=== PATIENT | female | born 1945 | race Caucasian/White ===

== ENCOUNTER 2022-12-12 11:16 | Inpatient (IN) | payer MEDICARE, BC, SELFPAY ==
[2022-12-12] VITALS (39 sets, daily range): BP systolic 113–155; BP diastolic 64–111; PULSE 85–146; RESP 20–36; TEMP 35.7–36.8; O2SAT 94–100
--- NOTE | 2022-12-12 11:22 | CRLHL7_ITS ---
For Patients: As a result of the Century Cures Act, medical imaging exams and procedure reports are released immediately into your electronic medical record. You may view this report before your referring provider. If you have questions, please contact your health care provider. INDICATION: Fall. COMPARISON: CT head 11/01/2012. TECHNIQUE: CT of the head without IV contrast. Coronal and sagittal reconstructions. FINDINGS: Exam limited by motion artifact. There is questionable loss of diez-white differentiation in the left frontal lobe (for example series 3, image 31). No mass effect or midline shift. No intracranial hemorrhage or abnormal extra-axial fluid collections. Mild generalized cerebral and cerebellar volume loss. Mild chronic small vessel ischemic disease. Ventricular caliber is within normal limits. Again seen is an aneurysm arising from the left middle cerebral artery measuring approximately 7 mm (series 3 image 21 and series 7, image 41). Orbits and extraocular muscles are symmetric. The paranasal sinuses and mastoid air cells are clear. No acute fracture identified. Soft tissue swelling overlying the right anterior frontal bone and right periorbital region. IMPRESSION: 1. There is questionable loss of diez-white differentiation in the left frontal lobe, however evaluation is limited by motion artifact. Consider further evaluation with MRI if there is clinical concern for acute infarct. No evidence of intracranial hemorrhage. 2. 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 This could be further evaluated with CTA or MRA. 3. Soft tissue swelling overlying the right anterior frontal bone and right periorbital region. Please note that all CT scans at this facility use dose modulation, iterative reconstruction, and/or weight-based dosing when appropriate to reduce radiation dose to as low as reasonably achievable. Dictated by Shalonda Ring MD @ 12/12/2022 12:23:08 PM (Electronically Signed)
--- NOTE | 2022-12-12 11:23 | CRLHL7_ITS ---
For Patients: As a result of the Century Cures Act, medical imaging exams and procedure reports are released immediately into your electronic medical record. You may view this report before your referring provider. If you have questions, please contact your health care provider. INDICATION: Fall. COMPARISON: None. TECHNIQUE: CT of the cervical spine without IV contrast. Coronal and sagittal reconstructions. FINDINGS: Exam limited by motion artifact. No acute fracture or traumatic malalignment of the cervical spine. Vertebral body heights are well maintained. Minimal anterolisthesis of C4 on C5. Spondylotic changes including endplate spurring, facet arthropathy, and moderate disc space narrowing at C6-C7. Multilevel varying degrees of neural foraminal narrowing. No significant spinal canal stenosis. No prevertebral soft tissue swelling. Visualized intracranial contents are unremarkable. The mastoid air cells are clear. The thyroid gland is normal in appearance. Pleural effusion in the right lung apex. There is subcutaneous edema in the right lateral face and neck. IMPRESSION: 1. No acute fracture or traumatic malalignment identified within limitations of motion artifact. 2. Spondylotic changes as described above. 3. Pleural effusion in the right lung apex. 4. Subcutaneous edema in the right lateral face and neck. Please note that all CT scans at this facility use dose modulation, iterative reconstruction, and/or weight-based dosing when appropriate to reduce radiation dose to as low as reasonably achievable. Dictated by Shalonda Ring MD @ 12/12/2022 12:32:11 PM (Electronically Signed)
--- NOTE | 2022-12-12 11:23 | CRLHL7_ITS ---
For Patients: As a result of the Century Cures Act, medical imaging exams and procedure reports are released immediately into your electronic medical record. You may view this report before your referring provider. If you have questions, please contact your health care provider. INDICATION: Fall. Unresponsive. COMPARISON: None TECHNIQUE: Single-view study FINDINGS: TUBES AND LINES: None. HEART AND MEDIASTINUM: Enlarged heart.. LUNGS AND PLEURAL SPACES: Diffuse multifocal airspace abnormality bilaterally, right greater than left. There is also consolidation at both bases and a right effusion.No pneumothorax. OSSEOUS STRUCTURES: Age-appropriate appearance. No acute focal finding. IMPRESSION: Diffuse multifocal airspace opacities bilaterally, right greater than left. This could be due to edema. There are also areas of consolidation at the bases and a right effusion. The consolidation could be due to atelectasis, aspiration or pneumonia. No pneumothorax Dictated by Brodie Larkin MD @ 12/12/2022 12:27:39 PM (Electronically Signed)
--- NOTE | 2022-12-12 11:27 | ED.GENADULT ---
HPI - General Adult General Chief complaint: Altered Mental Status Stated complaint: Unresponsive Time Seen by Provider: 12/12/22 11:21 History of Present Illness HPI narrative: This 77-year-old female comes in by ambulance. Ambulance was called by a nearby resident. The patient was down in her home for an unknown amount of time. She is not responding to stimulation but is maintaining vital signs. She has some erythema and mild swelling on the right side of her head and right upper eyelid. There is no other sign of injury. There is report that she has had fluid drain from her lungs in the past. There is also report that she has history of alcohol abuse. Related Data Home Medications Medication Instructions Recorded Confirmed furosemide 20 mg tablet 20 mg PO DAILY 12/12/22 12/12/22 losartan 100 mg tablet 100 mg PO DAILY 12/12/22 12/12/22 Review of Systems Status of ROS: Reports: unobtainable due to mental status [facility] Medical History (Updated 12/12/22 @ 15:02 by Smooth Minaya MD) Adenomatous colon polyp ?D12.6 - Benign neoplasm of colon, unspecified (ICD-10) Bilateral pleural effusion ?J90 - Pleural effusion, not elsewhere classified (ICD-10) Brain aneurysm ?I67.1 - Cerebral aneurysm, nonruptured (ICD-10) Heart failure ?I50.9 - Heart failure, unspecified (ICD-10) History of basal cell carcinoma ?Z85.828 - Personal history of other malignant neoplasm of skin (ICD-10) Hypertension ?I10 - Essential (primary) hypertension (ICD-10) Surgical History (Updated 12/12/22 @ 14:09 by Dylon Granados MD) History of bilateral cataract extraction ?Z98.41 - Cataract extraction status, right eye (ICD-10) ?Z98.42 - Cataract extraction status, left eye (ICD-10) History of breast biopsy ?Z98.890 - Other specified postprocedural states (ICD-10) History of section ?Z98.891 - History of uterine scar from previous surgery (ICD-10) History of partial colectomy ?Z90.49 - Acquired absence of other specified parts of digestive tract (ICD-10) Family History (Updated 12/12/22 @ 14:52 by Dylon Granados MD) Father High blood pressure Son Stroke Social History (Updated 12/12/22 @ 14:53 by Dylon Granados MD) Narrative: She lives alone in her own home. She was still working. 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 Remote history of smoking having quit about 40 years ago. She drinks alcohol regularly. Son is not aware of a problem with alcohol abuse. 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 Code status is DNR. Smoking Status: Unknown if ever smoked How often do you have a drink containing alcohol: 4 or more times a week AUDIT-C Alcohol total score: 4 Exam Narrative: Exam Narrative: Constitutional: Well-developed, well-nourished. HEENT: Mild swelling and erythema on the right upper eyelid and the right side of her head. Neck: A C-collar was placed upon arrival. Heart: Irregular. No murmurs. Tachycardia. Intact distal pulses. Lungs: Clear to auscultation. No wheezes, rhonchi, or rales. Abdomen: Normal bowel sounds. Genitalia: Deferred. Extremities: No injury. Skin: Intact. No rash. Warm. No erythema or pallor. Neurologic: Unresponsive to voice and tactile stimuli. Nursing notes and vitals signs are reviewed. Const: Vital Signs, click to edit/add: Vital Signs - 24 hr 12/12/22 11:29 12/12/22 11:59 12/12/22 12:00 Temperature 97 F L Pulse Rate 122 H 100 Pulse Rate [Pulse Oximeter] 134 H Respiratory Rate 24 Blood Pressure 153/111 H Blood Pressure [Le ft Upper Arm] 134/107 H Pulse Oximetry 100 100 99 Oxygen Delivery Me thod Non Rebreather Mas k 12/12/22 12:02 12/12/22 12:05 12/12/22 12:10 Temperature Pulse Rate 98 109 H 101 H Pulse Rate [Pulse Oximeter] Respiratory Rate Blood Pressure 120/76 Blood Pressure [Le ft Upper Arm] Pulse Oximetry 99 99 100 Oxygen Delivery Me thod 12/12/22 12:15 12/12/22 12:16 12/12/22 12:20 Temperature Pulse Rate 104 H 110 H 108 H Pulse Rate [Pulse Oximeter] Respiratory Rate Blood Pressure 132/97 H Blood Pressure [Le ft Upper Arm] Pulse Oximetry 97 98 96 Oxygen Delivery Me thod 12/12/22 12:25 12/12/22 12:30 12/12/22 12:31 Temperature Pulse Rate 118 H 114 H 108 H Pulse Rate [Pulse Oximeter] Respiratory Rate Blood Pressure 147/106 H Blood Pressure [Le ft Upper Arm] Pulse Oximetry 95 96 96 Oxygen Delivery Me thod 12/12/22 12:35 12/12/22 12:40 12/12/22 12:45 Temperature Pulse Rate 125 H 119 H 116 H Pulse Rate [Pulse Oximeter] Respiratory Rate Blood Pressure Blood Pressure [Le ft Upper Arm] Pulse Oximetry 96 96 96 Oxygen Delivery Me thod 12/12/22 12:46 12/12/22 12:50 Temperature Pulse Rate 109 H 102 H Pulse Rate [Pulse Oximeter] Respiratory Rate Blood Pressure 155/106 H Blood Pressure [Le ft Upper Arm] Pulse Oximetry 97 96 Oxygen Delivery Me thod Course Vital Signs Vital signs: Initial Vital Signs Temperature 97 F L 12/12/22 11:29 Temperature Source Temporal Artery Scan 12/12/22 11:29 Pulse Rate 134 H 12/12/22 11:29 Pulse Rhythm Irregular 12/12/22 11:29 Respiratory Rate 24 12/12/22 11:29 Blood Pressure 134/107 H 12/12/22 11:29 Blood Pressure Mean 116 12/12/22 11:29 Blood Pressure Position Supine 12/12/22 11:29 Pulse Oximetry 100 12/12/22 11:29 Oxygen Delivery Method Non Rebreather Mask 12/12/22 11:29 Vital Signs Temperature 97 F L 12/12/22 11:29 Pulse Rate 134 H 12/12/22 11:29 Respiratory Rate 24 12/12/22 11:29 Blood Pressure 134/107 H 12/12/22 11:29 Pulse Oximetry 100 12/12/22 11:29 Oxygen Delivery Method Non Rebreather Mask 12/12/22 11:29 Temperature 97 F L 12/12/22 11:29 Pulse Rate 102 H 12/12/22 12:50 Respiratory Rate 24 12/12/22 11:29 Blood Pressure 155/106 H 12/12/22 12:46 Pulse Oximetry 96 12/12/22 12:50 Oxygen Delivery Method Non Rebreather Mask 12/12/22 11:29 Medical Decision Making MDM Narrative Medical decision making narrative: This patient came in unresponsive. After placing orders I reexamined her and noted that she was moaning but still no other responses. EKG returns with atrial fibrillation and rapid ventricular response with a heart rate around 140 beats per minute. An IV was established where she did receive 1.75 L of normal saline which is 30 milliliters/kilogram. Her lactate returns elevated at around 4. Additionally her white count is elevated at around 18. CT imaging of the head and C-spine returned with no pathology of the C-spine that is acute. She does have a 7 mm aneurysm of the left middle cerebral artery. An MRI was completed which shows a large cerebrovascular accident in the left hemisphere. I spoke with Dr. Granados, hospitalist on-call, regarding these matters. He did speak with family members and the patient will be admitted for comfort cares. The patient did received 20 mg of diltiazem which brought her heart rate down to around 100 beats per minute and she continued in and irregular rhythm. Lab Data Labs: Lab Results 12/12/22 12/12/22 12/12/22 Range/Units 11:25 11:26 12:07 WBC 18.45 H (4.50-11.00) K/uL RBC 4.51 (4.00-5.20) m/uL Hgb 14.8 (12.0-16.0) gm/dL Hct 44.6 (33.0-51.0) % MCV 99 (80-100) fL MCH 33 (26-34) pg MCHC 33 (32-36) gm/dL RDW Coeff of Bree 14.4 (11.5-15.5) % Plt Count 335 (140-440) K/uL Neut % (Auto) 87.1 H (42.0-72.0) % Lymph % (Auto) 4.8 L (20-44) % [place] % (Auto) 7.8 (0.0-11.0) % Eos % (Auto) 0.0 (0.0-7.0) % Baso % (Auto) 0.1 (0.0-3.0) % Neut # (Auto) 16.10 H (1.7-7.0) K/uL Lymph # (Auto) 0.90 (0.90-2.90) K/uL [place] # (Auto) 1.40 H (0.00-0.90) K/UL Eos # (Auto) 0.00 (0.00-0.50) K/uL Baso # (Auto) 0.00 (0.00-0.30) K/uL Sodium 139 (135-149) mmol/L Potassium 3.5 L (3.6-5.1) mmol/L Chloride 106 (96-114) mmol/L Carbon Dioxide 20 (20-32) mmol/L BUN 19 (7-30) mg/dL Creatinine 0.7 (0.5-1.5) mg/dL Estimated GFR 90 ml/min Glucose 184 H (60-115) mg/dL Lactate 4.1 H* (0.5-1.9) mmol/L Calcium 8.9 (8.4-10.6) mg/dL Total Bilirubin 1.5 (0.1-1.5) mg/dL Direct Bilirubin 0.2 (0.0-0.5) mg/dL AST 40 H (12-35) U/L ALT 26 (4-35) U/L Alkaline Phosphatase 84 (40-150) U/L Total Creatine Kinase 85 (41-117) U/L Total Protein 7.2 (6.0-8.3) g/dL Albumin 4.4 (3.3-5.0) g/dL Urine Color Dark yellow (Yellow) Urine Appearance Slightly Cloudy A (Clear) Urine pH 5.5 (5.0-8.5) Ur Specific [place] >= 1.030 (1.000-1.030) Urine Protein 3+ A (Negative) Urine Glucose (UA) Negative (Negative) Urine Ketones Trace A (Negative) Urine Blood Trace-lysed A (Negative) Urine Nitrite Negative (Negative) Urine Bilirubin 1+ A (Negative) Urine Urobilinogen 1.0 (0.2-1.0) Ur Leukocyte Esterase Negative (Negative) Urine RBC 0-2 (0-2) Urine WBC 0-2 (0-5) Ur Squamous Epith Cells Few (None-Few) Urine Bacteria None (None) Urine Opiates Screen Negative (Negative) Ur Oxycodone Screen Negative (Negative) Urine Methadone Screen Negative (Negative) Ur Propoxyphene Screen Negative (Negative) Ur Barbiturates Screen Negative (Negative) U Tricyclic Antidepress Negative (Negative) Ur Phencyclidine Scrn Negative (Negative) Ur Amphetamines Screen Negative (Negative) U Methamphetamines Scrn Negative (Negative) U Benzodiazepines Scrn Negative (Negative) Urine Cocaine Screen Negative (Negative) U Marijuana (THC) Screen Negative (Negative) Ur Drug Screen Comment See Note Ethyl Alcohol < 0.01 L (0.01-0.03) % SARS-CoV-2 (PCR) (Negative) POC Troponin I 0.03 (0.01-0.04) ng/ml 12/12/22 Range/Units 13:42 WBC (4.50-11.00) K/uL RBC (4.00-5.20) m/uL Hgb (12.0-16.0) gm/dL Hct (33.0-51.0) % MCV (80-100) fL MCH (26-34) pg MCHC (32-36) gm/dL RDW Coeff of Bree (11.5-15.5) % Plt Count (140-440) K/uL Neut % (Auto) (42.0-72.0) % Lymph % (Auto) (20-44) % [place] % (Auto) (0.0-11.0) % Eos % (Auto) (0.0-7.0) % Baso % (Auto) (0.0-3.0) % Neut # (Auto) (1.7-7.0) K/uL Lymph # (Auto) (0.90-2.90) K/uL [place] # (Auto) (0.00-0.90) K/UL Eos # (Auto) (0.00-0.50) K/uL Baso # (Auto) (0.00-0.30) K/uL Sodium (135-149) mmol/L Potassium (3.6-5.1) mmol/L Chloride (96-114) mmol/L Carbon Dioxide (20-32) mmol/L BUN (7-30) mg/dL Creatinine (0.5-1.5) mg/dL Estimated GFR ml/min Glucose (60-115) mg/dL Lactate (0.5-1.9) mmol/L Calcium (8.4-10.6) mg/dL Total Bilirubin (0.1-1.5) mg/dL Direct Bilirubin (0.0-0.5) mg/dL AST (12-35) U/L ALT (4-35) U/L Alkaline Phosphatase (40-150) U/L Total Creatine Kinase (41-117) U/L Total Protein (6.0-8.3) g/dL Albumin (3.3-5.0) g/dL Urine Color (Yellow) Urine Appearance (Clear) Urine pH (5.0-8.5) Ur Specific [place] (1.000-1.030) Urine Protein (Negative) Urine Glucose (UA) (Negative) Urine Ketones (Negative) Urine Blood (Negative) Urine Nitrite (Negative) Urine Bilirubin (Negative) Urine Urobilinogen (0.2-1.0) Ur Leukocyte Esterase (Negative) Urine RBC (0-2) Urine WBC (0-5) Ur Squamous Epith Cells (None-Few) Urine Bacteria (None) Urine Opiates Screen (Negative) Ur Oxycodone Screen (Negative) Urine Methadone Screen (Negative) Ur Propoxyphene Screen (Negative) Ur Barbiturates Screen (Negative) U Tricyclic Antidepress (Negative) Ur Phencyclidine Scrn (Negative) Ur Amphetamines Screen (Negative) U Methamphetamines Scrn (Negative) U Benzodiazepines Scrn (Negative) Urine Cocaine Screen (Negative) U Marijuana (THC) Screen (Negative) Ur Drug Screen Comment Ethyl Alcohol (0.01-0.03) % SARS-CoV-2 (PCR) Negative SARS-CoV-2 (Negative) POC Troponin I (0.01-0.04) ng/ml Imaging Data CT scan - head: Radiologist's impression: 1. There is questionable loss of diez-white differentiation in the left frontal lobe, however evaluation is limited by motion artifact. Consider further evaluation with MRI if there is clinical concern for acute infarct. No evidence of intracranial hemorrhage. 2. 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 This could be further evaluated with CTA or MRA. 3. Soft tissue swelling overlying the right anterior frontal bone and right periorbital region. CT C Spine: Radiologist's impression: 1. No acute fracture or traumatic malalignment identified within limitations of motion artifact. 2. Spondylotic changes as described above. 3. Pleural effusion in the right lung apex. 4. Subcutaneous edema in the right lateral face and neck. ECG Data Attestation: I personally reviewed and interpreted this ECG as follows: Interpretation: Atrial fibrillation with rapid ventricular response. Rate is 141 beats per minute. There are no specific ST or T-wave abnormalities. Critical Care Time Critical Care Time Critical Care Time: Yes Attestation: The patient required my highest level preparedness to intervene emergently and I personally spent this critical care time directly and personally managing the patient. This critical care time included: Obtaining a history; Examining the patient; Pulse oximetry; Ordering and reviewing of studies; Arranging urgent treatment with development of a management plan; Evaluation of patients response to treatment; Frequent reassessment discussions with other providers. This critical care time was performed to assess and manage the high probability of imminent life-threatening deterioration that could result in multiorgan failure. It was exclusive of separate billable procedures and treating other patients and teaching time. Total Critical Care Time in Minutes: 45 Discharge Plan Discharge Clinical Impression: Altered mental status, Cerebrovascular accident (CVA), Atrial fibrillation with RVR Patient Disposition: Admitted As Inpatient Condition: Unchanged
--- NOTE | 2022-12-12 11:42 | ED.NURSE ---
Patient back from radiology. Dr. Minaya with patient, plan for fluids and diltiazem.
[2022-12-12 11:45] LABS: Lactate* 4.1 mmol/L (0.5-1.9)
[2022-12-12 11:46] LABS: Basophils Percent Auto 0.1 % (0.0-3.0); Hematocrit 44.6 % (33.0-51.0); Hemoglobin* 14.8 gm/dL (12.0-16.0); Immature Granulocytes Pct Auto 0.2 %; Lymphocytes Percent Auto 4.8 % (20-44); Mean Corpuscular HGB Conc 33 gm/dL (32-36); Mean Corpuscular Hemoglobin 33 pg (26-34); Mean Corpuscular Volume 99 fL (80-100); Monocytes Percent Auto 7.8 % (0.0-11.0); Neutrophils Percent Auto 87.1 % (42.0-72.0); Platelet Count* 335 K/uL (140-440); RDW Coefficient of Variation % 14.4 % (11.5-15.5); Red Blood Count 4.51 m/uL (4.00-5.20); Slide Review Reflex No; White Blood Count* 18.45 K/uL (4.50-11.00)
[2022-12-12] MEDS: 0.9 % SODIUM CHLORIDE 1000 ml 1,000 ML 750 ML IV (12:00)
[2022-12-12] MEDS: dilTIAZem 5 MG/ML inj 20 MG IVP (12:00)
[2022-12-12 12:08] LABS: Albumin* 4.4 g/dL (3.3-5.0)
[2022-12-12 12:09] LABS: Chloride* 106 mmol/L (96-114); Creatine Kinase* 85 U/L (41-117); Potassium* 3.5 mmol/L (3.6-5.1); Sodium* 139 mmol/L (135-149)
[2022-12-12 12:11] LABS: Alanine Aminotransferase* 26 U/L (4-35); Alkaline Phosphatase* 84 U/L (40-150); Aspartate Amino Transferase* 40 U/L (12-35); Bilirubin Direct* 0.2 mg/dL (0.0-0.5); Bilirubin Total* 1.5 mg/dL (0.1-1.5); Creatinine* 0.7 mg/dL (0.5-1.5); Estimated Glomerular Filt Rate 90 ml/min; Total Protein* 7.2 g/dL (6.0-8.3)
[2022-12-12 12:12] LABS: Blood Urea Nitrogen* 19 mg/dL (7-30); Carbon Dioxide* 20 mmol/L (20-32); Glucose* 184 mg/dL (60-115)
[2022-12-12 12:13] LABS: Calcium* 8.9 mg/dL (8.4-10.6)
[2022-12-12 12:14] LABS: Troponin, Point-of-Care* 0.03 ng/ml (0.01-0.04)
[2022-12-12 12:17] LABS: Ethanol* < 0.01 % (0.01-0.03)
[2022-12-12 12:23] LABS: Appearance Urine Slightly Cloudy (Clear); Bilirubin Urine 1+ (Negative); Blood Urine Trace-lysed (Negative); Color Urine Dark yellow (Yellow); Glucose Urine Negative (Negative); Ketones Urine Trace (Negative); Leukocyte Esterase Urine Negative (Negative); Nitrite Urine Negative (Negative); Protein Urine 3+ (Negative); Specific Gravity Urine >= 1.030 (1.000-1.030); pH Urine 5.5 (5.0-8.5)
[2022-12-12 12:35] LABS: Amphetamine Screen Urine Negative (Negative); Barbiturate Screen Urine Negative (Negative); Benzodiazepines Screen Urine Negative (Negative); Cannabinoid Screen Urine Negative (Negative); Cocaine Screen Urine Negative (Negative); Methadone Screen Urine Negative (Negative); Methamphetamines Screen Urine Negative (Negative); Opiate Screen Urine Negative (Negative); Oxycodone Screen Urine Negative (Negative); Phencyclidine Screen Urine Negative (Negative); Tricyclic Antidepressant Urine Negative (Negative)
[2022-12-12 12:58] LABS: RBC Urine 0-2 (0-2); Squamous Epithelial Cell Urine Few (None-Few); WBC Urine 0-2 (0-5)
--- NOTE | 2022-12-12 13:22 | ED.NURSE ---
collar removed, son at bedside. continues decrease LOC. does respond to pain, at times, to voice
--- NOTE | 2022-12-12 13:42 | CRLHL7_ITS ---
For Patients: As a result of the Cures Act, medical imaging exams and procedure reports are released immediately into your electronic medical record. You may view this report before your referring provider. If you have questions, please contact your health care provider. Dictation for this exam included within the brain MRI report from the same date. Dictated by Nino Pino MD @ 12/12/2022 3:33:48 PM (Electronically Signed)
--- NOTE | 2022-12-12 13:42 | CRLHL7_ITS ---
For Patients: As a result of the Century Cures Act, medical imaging exams and procedure reports are released immediately into your electronic medical record. You may view this report before your referring provider. If you have questions, please contact your health care provider. INDICATION: Altered mental status. Left gaze deviation. TECHNIQUE: Brain MRI without contrast. The following sequences were obtained: Sagittal T1 weighted sequence. DWI and ADC mapping sequences. Axial FLAIR and ANGELICA T2 weighted sequences. Brain MRA without contrast. 3D [id number] sequence with MIPS reconstructions included. COMPARISON: Head CT from 12/12/2022. FINDINGS: Brain MRI: There is a large zone of diffusion restriction within the left frontal lobe including the operculum, insula, middle frontal gyrus and precentral gyrus, the left-sided basal ganglia including the caudate, putamen and internal capsule and minimally within the left postcentral gyrus and left anterior mesial temporal lobe as well. The infarct bed measures up to 49 x 94 millimeters in axial plane. Paucity of associated FLAIR hyperintense signal suggests acute age. This infarct involves the MCA territory. No acute or chronic intracranial blood products. Scattered FLAIR hyperintensities within the supratentorial white matter, predominantly deep/periventricular location, typical for chronic microvascular ischemic change. No mass effect or herniation. No hydrocephalus or extra-axial collections. The pituitary gland, parasellar structures and optic chiasm are normal. Posterior fossa is normal. Loss of the normal left intracranial internal carotid artery flow void. The orbital contents are normal. No calvarial or skull base marrow replacing process. No obstructive sinus disease. No extracranial soft tissue findings. Brain MRA: Motion artifact degrades the exam. No flow related enhancement within the left intracranial internal carotid artery or left middle cerebral artery. The anterior cerebral arteries, right middle cerebral arteries and posterior cerebral arteries are patent. Right intracranial internal carotid artery is patent. Intradural vertebral arteries and basilar artery are patent. IMPRESSION: 1. Large 94 millimeter acute MCA distribution infarct centered within the left frontal lobe and basal ganglia. DWI/FLAIR mismatch suggests acute age (less than 12 hours). No hemorrhagic transformation. No recent infarcts elsewhere within the brain. 2. No flow related enhancement within the left intracranial internal carotid artery or middle cerebral artery. The left middle cerebral artery is likely occluded. The left internal carotid artery likely is occluded or severely stenotic within its cervical segment. Consider dedicated neck arterial imaging for further assessment. 3. The other major intracranial arteries are patent, within limits of motion degraded exam. 4. I discussed the findings directly with Dr. Granados at 3:32 p.m., 12/12/2022. Dictated by Nino Pino MD @ 12/12/2022 3:32:53 PM (Electronically Signed)
[2022-12-12 14:38] LABS: SARS PCR* Negative SARS-CoV-2 (Negative)
--- NOTE | 2022-12-12 14:44 | PM.IMHP1 ---
Hospitalist- H&P: HPI History of Present Illness Date Seen: 12/12/22 Chief complaint: Unresponsive Narrative: Jory Harris is a 77 year old female with hypertension admitted to the hospital after being found down at home. Lives alone. She was last felt to be normal at around 8:00 p.m. last night when she talked with her son on the phone. This morning she did not call her friend as she usually does and she did not go to her work as she was expected to do. The police were called to break down her door where they found her unresponsive on the floor. The past few days she has been feeling poorly. There is no definite specific symptoms of illness. She was seen in clinic yesterday where she had an unremarkable urinalysis. She had a chest CT scan that showed no PE, moderate right greater than left pleural effusions and bibasilar atelectasis. She had some patchy ground-glass opacities in the left lingula. This was felt to be heart failure and was recommended that she undergo thoracentesis and obtain echocardiogram. This was scheduled for 4 days from now as an outpatient. She was started on furosemide 20 mg daily. Patient is up tended and information is obtained obtained from the medical record and from her son who is her only child and is healthcare power of line servicer. He is not aware of her having any specific problems. He did talk to her about her clinic visit yesterday and her report of not feeling well for several days. Review of Systems Narrative: Unable to obtain due to altered mental status. Per her son, she did not feel well for the last several days. He is not aware of her having a fever or chest pain or vomiting. He told me that she was concerned she might have a urinary tract infection.. Urinalysis at the clinic was unremarkable and urine cultures pending [facility] Medical History (Updated 12/12/22 @ 15:38 by Dylon Granados MD) Adenomatous colon polyp ?D12.6 - Benign neoplasm of colon, unspecified (ICD-10) Bilateral pleural effusion ?J90 - Pleural effusion, not elsewhere classified (ICD-10) Brain aneurysm ?I67.1 - Cerebral aneurysm, nonruptured (ICD-10) Heart failure ?I50.9 - Heart failure, unspecified (ICD-10) History of basal cell carcinoma ?Z85.828 - Personal history of other malignant neoplasm of skin (ICD-10) Hypertension ?I10 - Essential (primary) hypertension (ICD-10) Surgical History (Updated 12/12/22 @ 14:09 by Dylon Granados MD) History of bilateral cataract extraction ?Z98.41 - Cataract extraction status, right eye (ICD-10) ?Z98.42 - Cataract extraction status, left eye (ICD-10) History of breast biopsy ?Z98.890 - Other specified postprocedural states (ICD-10) History of section ?Z98.891 - History of uterine scar from previous surgery (ICD-10) History of partial colectomy ?Z90.49 - Acquired absence of other specified parts of digestive tract (ICD-10) Family History (Updated 12/12/22 @ 14:52 by Dylon Granados MD) Father High blood pressure Son Stroke Social History (Updated 12/12/22 @ 14:53 by Dylon Granados MD) Narrative: She lives alone in her own home. She was still working. 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 Remote history of smoking having quit about 40 years ago. She drinks alcohol regularly. Son is not aware of a problem with alcohol abuse. He is healthcare power of line servicer. Code status is DNR. Highest level of school completed/degree received: Bachelor's degree Smoking Status: Former smoker How often do you have a drink containing alcohol: 4 or more times a week Alcohol type: hard liquor Alcohol type details: 2 a day per son How many standard drinks containing alcohol do you have on a typical day: 1 or 2 AUDIT-C Alcohol total score: 4 Non-prescribed substance use: denies use Caffeine: Yes (coffee in am) service: No Meds Home Medications and Allergies Home Medications Medication Instructions Recorded Confirmed Type furosemide 20 mg tablet 20 mg PO DAILY 12/12/22 12/12/22 History losartan 100 mg tablet 100 mg PO DAILY 12/12/22 12/12/22 History Allergies Allergy/AdvReac Type Severity Reaction Status Date / Time No Known Allergies Allergy Verified 12/12/22 15:13 Exam Narrative: Exam Narrative: She does not arouse to voice or touch. She does not open her eyes on command or to voice or touch. She is observed to have spontaneous purposeful movement of her left upper and lower extremities. No spontaneous movement of the right side. She has mild facial asymmetry with some loss of nasal labial crease on the right. When I lift her eyelids she has tonic gaze deviation to the left. This does not change with head movement or with visual threat or confrontation. Oropharynx with dry mucous membranes. She has a bruise and abrasion over her right forehead and parietal scalp and small amount of superficial blood present. Respirations with diminished breath sounds at both bases as well as a few crackles at both bases. She is breathing supplemental oxygen. Breathing is mildly labored. Cardiovascular: S1, S2, irregularly irregular and rapid. Abdomen: Bowel sounds active. Abdomen is soft without tenderness or mass. External genitalia normal. Bedolla catheter in place. Left upper extremity response to touch relatively normally. She has some normal tone associated with passive movements. She does withdraw to pain. Left lower extremity also with relatively normal response to passive movement. Right upper extremity has increased tone and rigidity. No spontaneous movement. Right lower extremity is flaccid. She has intact pedal pulses. Const: Vital Signs, click to edit/add: Vital Signs - 24 hr 12/12/22 11:29 12/12/22 11:59 12/12/22 12:00 Temperature 97 F L Pulse Rate 122 H 100 Pulse Rate [Pulse Oximeter] 134 H Respiratory Rate 24 Blood Pressure 153/111 H Blood Pressure [Le ft Upper Arm] 134/107 H Pulse Oximetry 100 100 99 Oxygen Delivery Me thod Non Rebreather Mas k 12/12/22 12:02 12/12/22 12:05 12/12/22 12:10 Temperature Pulse Rate 98 109 H 101 H Pulse Rate [Pulse Oximeter] Respiratory Rate Blood Pressure 120/76 Blood Pressure [Le ft Upper Arm] Pulse Oximetry 99 99 100 Oxygen Delivery Me thod 12/12/22 12:15 12/12/22 12:16 12/12/22 12:20 Temperature Pulse Rate 104 H 110 H 108 H Pulse Rate [Pulse Oximeter] Respiratory Rate Blood Pressure 132/97 H Blood Pressure [Le ft Upper Arm] Pulse Oximetry 97 98 96 Oxygen Delivery Me thod 12/12/22 12:25 12/12/22 12:30 12/12/22 12:31 Temperature Pulse Rate 118 H 114 H 108 H Pulse Rate [Pulse Oximeter] Respiratory Rate Blood Pressure 147/106 H Blood Pressure [Le ft Upper Arm] Pulse Oximetry 95 96 96 Oxygen Delivery Me thod 12/12/22 12:35 12/12/22 12:40 12/12/22 12:45 Temperature Pulse Rate 125 H 119 H 116 H Pulse Rate [Pulse Oximeter] Respiratory Rate Blood Pressure Blood Pressure [Le ft Upper Arm] Pulse Oximetry 96 96 96 Oxygen Delivery Me thod 12/12/22 12:46 12/12/22 12:50 Temperature Pulse Rate 109 H 102 H Pulse Rate [Pulse Oximeter] Respiratory Rate Blood Pressure 155/106 H Blood Pressure [Le ft Upper Arm] Pulse Oximetry 97 96 Oxygen Delivery Me thod Documenting provider has reviewed patient's vital signs: yes Hospitalist - H&P: Result Labs Labs: Short CBC 12/12/22 Range/Units 11:26 WBC 18.45 H (4.50-11.00) K/uL Hgb 14.8 (12.0-16.0) gm/dL Hct 44.6 (33.0-51.0) % Plt Count 335 (140-440) K/uL BMP 12/12/22 11:26 Sodium 139 Potassium 3.5 L Chloride 106 Carbon Dioxide 20 BUN 19 Creatinine 0.7 Glucose 184 H Calcium 8.9 Cardiac Enzymes 12/12/22 Range/Units 11:26 Total Creatine Kinase 85 (41-117) U/L Liver Function 12/12/22 Range/Units 11:26 Total Bilirubin 1.5 (0.1-1.5) mg/dL Direct Bilirubin 0.2 (0.0-0.5) mg/dL AST 40 H (12-35) U/L ALT 26 (4-35) U/L Alkaline Phosphatase 84 (40-150) U/L Albumin 4.4 (3.3-5.0) g/dL Urine 12/12/22 Range/Units 12:07 Urine Color Dark yellow (Yellow) Urine Appearance Slightly Cloudy A (Clear) Urine pH 5.5 (5.0-8.5) Ur Specific [place] >= 1.030 (1.000-1.030) Urine Protein 3+ A (Negative) Urine Glucose (UA) Negative (Negative) ECG Attestation: I personally reviewed and interpreted this ECG as follows: (AFib with RVR.) Imaging CT scan - head: Attestation: I have reviewed the pertinent imaging results. (Head CT with no definite stroke) MRI - head: Attestation: I have reviewed the pertinent imaging results. (Head MRI shows large area of stroke in the left middle cerebral artery distribution) Radiologist's impression: Pending Assessment and Plan Assessment and plan (1) Cerebrovascular accident (CVA): Problem comment: Large left hemisphere stroke. Causing right hemiparesis. Causing altered mental status and likely speech and swallowing difficulties. May be embolic with the presence of AFib. AFib is a new diagnosis. In clinic yesterday her pulse was noted to be 77. I suspect she may have had AFib for prolonged period of time causing her feeling for several days of not feeling well and possibly her pleural effusions. Discussed with her son the guarded prognosis in this situation. Discussed goals of care. At this point he wants nothing heroic. As we manage her stroke and observe her recovery further decisions to be made about goals of care. Antiplatelet therapy and statin when able to swallow. Consider anticoagulation for AFib and stroke, instead of antiplatelet therapy, in 5-7 days if consistent with goals of therapy Status: Acute (2) Bilateral pleural effusion: Problem comment: Likely due to heart failure. Manage medically. Very cautiously diurese. Keep blood pressure high for stroke. Status: Acute (3) Heart failure: Problem comment: Obtain echo. Possibly due to AFib with RVR longstanding. Guideline directed medical therapy initiated when possible allowing for permissive hypertension, inability to swallow and stroke management. Status: Acute (4) Atrial fibrillation with RVR: Problem comment: New diagnosis. No history of AFib before this. Normal vitals yesterday. Possibly present for longer. Work on rate control now. Anticoagulate if clinically improving and consistent with the goals of care in 5-7 days. Avoid full anticoagulation now due to risk of converting ischemic stroke into hemorrhagic stroke. Status: Acute (5) Hypertension: Problem comment: Permissive hypertension with stroke Status: Acute (6) Pneumonia: Problem comment: Elevated white count, lactate and abnormal findings on chest x-ray and CT. Initiate broad-spectrum antibiotic with Zosyn and azithromycin. Revisit this treatment based on goals of care and clinical course. Status: Acute (7) Nutrition disorder: Problem comment: Anticipate swallowing difficulties with stroke. Review nutrition management day by day. Status: Acute Plan Patient is admitted to the hospital for critical care management of large ischemic stroke, AFib with RVR, heart failure, possible pneumonia. Continue goals of care discussion with her son. Total time spent today is 120 minutes in coordination of care and discussing with son and other providers management of stroke, AFib, heart failure, pneumonia as well as palliative care discussion.
[2022-12-12] MEDS: LACTATED RINGERS 1000 ML 1,000 ML 75 ML IV (14:48)
[2022-12-12] MEDS: METOPROLOL TARTRATE 1 MG/ML inj 5 MG IVP ×2 (14:48→15:33)
[2022-12-12 15:03] LABS: Magnesium* 1.6 mg/dL (1.5-2.6)
[2022-12-12 15:16] LABS: Troponin I* 0.03 ng/mL (0.01-0.04)
--- NOTE | 2022-12-12 15:30 | PC.NURSE ---
PATIENT TO FLOOR AROUND 1430 FROM MRI, ACCOMPANIED BY SON DAR, AT BEDSIDE, SON IS VERY SUPPORTIVE AND CARING, PATIENT UNABLE TO FOLLOW DIRECTIONS, IS ABLE TO MOVE LEFT ARM AND LEFT LEG AT OWN WILL, NOTED TO BE DRY HEAVING AND MD UPDATED SEE NEW ORDERS, WOUND TO RIGHT SIDE OF HEAD ABOVE EAR AND SCRAP TO RIGHT INNER ANKLE, VIGIL PATENT AND DRAINING, IV PATENT IN LEFT FA, TELE SHOWING AFIB WITH RVR MD AWARE SEE ORDERS.
[2022-12-12] MEDS: PIPERACILLIN/TAZOBACTAM 3.375 GM in 0.9 % SODIUM CHLORIDE Mini-bag 100 ML IVPB ×2 (15:45→21:50)
[2022-12-12] MEDS: DIGOXIN 250 MCG/ML inj IV ×3 (15:57→23:59)
[2022-12-12] MEDS: AZITHROMYCIN 500 MG in 0.9 % SODIUM CHLORIDE 250 ml 250 ML 255 MG IVPB (16:35)
[2022-12-12] MEDS: MAGNESIUM IV 4 GM/100 ML PIGGYBACK IVPB (17:42)
[2022-12-12] MEDS: ENOXAPARIN 40 MG/0.4 ML INJ SUBCUT (21:04)
[2022-12-12] MEDS: SODIUM CHLORIDE 0.9 % (FLUSH) 10 ML SYRINGE 5 ML IVF (21:04)
--- NOTE | 2022-12-12 22:07 | PC.NURSE ---
End of shift. Pt has been unresponsive most of the shift. 2100 she was opening eyes and moving lips left side. she was unable to tract with eyes. not able to squeeze hand. no meaningful communication pt. we are explain all things to pt. when we are turning her and starting IV ect. she does move her left arm and legs. she has not moved her right arm or leg. right pupil responds. po cares done. alexandru cares done and a brief was placed on pt. she has a Bedolla that is patent. she had 200 dark urine out. she was turned and repositioned. she is moving left arms and legs and repositioning helps that. she has 2 IVs in. meds given per EMAR> BS 164 and 140, tele show A-fib HR was 120-130 at start and now 80-110. she is getting digoxin x3 (only 2 so far) and Metoprolol PRN she got that 2 times so far. cont sao2 is on. she was 97-98 on 3L and is 94-99% on 1L nc. alarms are on. she is a fall risk. she is NPO. she is a bed weight. son and 2 friends where here visiting. son will be back in the am and he is loving and caring. has been updated.
[2022-12-13] VITALS (21 sets, daily range): BP systolic 120–189; BP diastolic 64–124; PULSE 77–104; RESP 16–24; TEMP 36.3–37.1; O2SAT 93–97
[2022-12-13] MEDS: METOPROLOL TARTRATE 1 MG/ML inj 5 MG IVP (02:44)
[2022-12-13] MEDS: LACTATED RINGERS 1000 ML 1,000 ML 75 ML IV (02:51)
[2022-12-13] MEDS: PIPERACILLIN/TAZOBACTAM 3.375 GM in 0.9 % SODIUM CHLORIDE Mini-bag 100 ML IVPB ×4 (03:24→22:47)
[2022-12-13 06:01] LABS: Lactate* 1.1 mmol/L (0.5-1.9)
[2022-12-13 06:08] LABS: Basophils Percent Auto 0.1 % (0.0-3.0); Hemoglobin* 13.3 gm/dL (12.0-16.0); Immature Granulocytes Pct Auto 0.2 %; Lymphocytes Percent Auto 10.2 % (20-44); Mean Corpuscular HGB Conc 33 gm/dL (32-36); Mean Corpuscular Hemoglobin 33 pg (26-34); Mean Corpuscular Volume 98 fL (80-100); Monocytes Percent Auto 8.4 % (0.0-11.0); Neutrophils Percent Auto 81.1 % (42.0-72.0); Platelet Count* 244 K/uL (140-440); RDW Coefficient of Variation % 14.5 % (11.5-15.5); Red Blood Count 4.09 m/uL (4.00-5.20); White Blood Count* 17.78 K/uL (4.50-11.00)
[2022-12-13 06:20] LABS: Chloride* 112 mmol/L (96-114); Potassium* 3.6 mmol/L (3.6-5.1); Sodium* 142 mmol/L (135-149)
[2022-12-13 06:22] LABS: Slide Review Reflex No
[2022-12-13 06:23] LABS: Creatinine* 0.7 mg/dL (0.5-1.5); Estimated Glomerular Filt Rate 90 ml/min
[2022-12-13 06:24] LABS: Blood Urea Nitrogen* 19 mg/dL (7-30); Calcium* 8.3 mg/dL (8.4-10.6); Carbon Dioxide* 22 mmol/L (20-32); Glucose* 123 mg/dL (60-115); Magnesium* 2.5 mg/dL (1.5-2.6)
[2022-12-13 06:27] LABS: C Reactive Protein* 3.7 mg/dL (0.5-1.0)
--- NOTE | 2022-12-13 06:32 | PC.NURSE ---
Addendum entered by Lisa Jackson RN 12/13/22 06:52: Critical value received for pt, troponin 0.09. Reported to Edgar, no new orders received. Urine output 125ml, reported to Edgar with no new orders received. Original Note: SHIFT NOTE : Pt remains unresponsive, pt moves her left arm and left leg, unable to move extremities on the right side. Pt appears comfortable, did not appear restless or in pain throughout the night. Pt turned and repositioned Q2H with a 2 assist and tolerated well. VIGIL patent and draining. Tele reads a-fib, PRN Metoprolol given x1 overnight to maintain HR below 100. Pt remains on 1L O2 to keep saturations >90%. Afebrile.
[2022-12-13 06:36] LABS: Troponin I* 0.09 ng/mL (0.01-0.04)
[2022-12-13] MEDS: 0.9 % SODIUM CHLORIDE 250 ml 250 ML IV ×2 (07:37→11:41)
--- NOTE | 2022-12-13 08:38 | REH.PT ---
Orders for PT Eval/Treat received. Chart reviewed. requested hold on PT/OT/ST at this time as pt is unresponsive.
[2022-12-13] MEDS: SODIUM CHLORIDE 0.9 % (FLUSH) 10 ML SYRINGE 5 ML IVF ×2 (09:38→20:49)
[2022-12-13] MEDS: DIGOXIN 250 MCG/ML inj 125 MCG IV (09:54)
[2022-12-13] MEDS: 5 % DEXTROSE IN LAC RINGER'S 1,000 ML 75 ML IV (11:41)
[2022-12-13 11:55] LABS: Troponin I* 0.11 ng/mL (0.01-0.04)
--- NOTE | 2022-12-13 11:57 | PC.NURSE ---
shift note: critcal InesI reported verbally to Dr. Vinson. Awaiting further orders. will continue to monitor
[2022-12-13] MEDS: LACTATED RINGERS 1000 ML 500 ML IV (15:32)
[2022-12-13] MEDS: 5 % DEXTROSE IN LAC RINGER'S 1,000 ML 100 ML IV (15:32)
[2022-12-13] MEDS: AZITHROMYCIN 500 MG in 0.9 % SODIUM CHLORIDE 250 ml 250 ML 250 MG IVPB (16:00)
--- NOTE | 2022-12-13 18:55 | PC.NURSE ---
shift note: pt BR with t&r q2hrs. LS dim throughout the day till this donnie @ 1830. Pt has audible wheezing with tachypneic resps 24-26. bilat post bases insp/exp wheezing assessed. sats 96% on 1L pnc. Dr. Granados notified. Pt received 2 ns bolus and 1 LR bolus today with No UO. Dr. Granados notified. total UO for today 100cc dk eagle urine. pt has voluntary movement at times on lt u/e. this afternoon tech writer noticed pt able to move toes on rt foot. Pt unable to open eyes on instruction. Pt making sounds but unable to verbalize needs. pupils unequal but responding to light. HR irreg. with tele reading at fib with occasional pac; Hr 80's-90's. rt upper hairline laceration intact. rt inner ankle with small abrasion. IV x2 patent. pt's son at bedside throughout the day.
[2022-12-13] MEDS: FUROSEMIDE 10 MG/ML inj 20 MG IVP (20:49)
[2022-12-13] MEDS: ENOXAPARIN 40 MG/0.4 ML INJ SUBCUT (20:49)
[2022-12-13] MEDS: LORazepam 2 MG/ML inj 0.5 MG IVP (23:13)
[2022-12-14] VITALS (11 sets, daily range): BP systolic 110–174; BP diastolic 77–127; PULSE 88–109; RESP 16–24; TEMP 36.4–37; O2SAT 93–97
[2022-12-14] MEDS: POTASSIUM CHLORIDE 10 MEQ/100 ML PIGGYBACK 100 MEQ IVPB ×2 (00:08→01:12)
[2022-12-14] MEDS: HYDROmorphone 0.5 mg/0.5 ml inj 0.2 MG IVP ×4 (01:14→18:12)
[2022-12-14] MEDS: 5 % DEXTROSE IN LAC RINGER'S 1,000 ML 100 ML IV ×2 (02:12→14:19)
[2022-12-14] MEDS: PIPERACILLIN/TAZOBACTAM 3.375 GM in 0.9 % SODIUM CHLORIDE Mini-bag 100 ML IVPB ×4 (04:12→21:26)
[2022-12-14] MEDS: 0.9 % SODIUM CHLORIDE 250 ml IV (04:30)
--- NOTE | 2022-12-14 04:52 | PC.NURSE ---
[id number]: Patient nonresponsive d/t CVA. Frequent T&R. Bedolla patent and draining pale yellow urine. HOB remains elevated. HR 90's to low 100's. O2 >90% on 1 Lt NC. Frequent/occasional voluntary movements with L. arm and leg. Some resistance to movement on R. side. Occasional restlessness noted. PRN Ativan and Dilaudid per eMar administered with results.
[2022-12-14] MEDS: SODIUM CHLORIDE 0.9 % (FLUSH) 10 ML SYRINGE 5 ML IVF ×5 (06:26→21:26)
[2022-12-14 06:39] LABS: Basophils Percent Auto 0.1 % (0.0-3.0); Eosinophils Percent Auto 0.1 % (0.0-7.0); Hematocrit 38.3 % (33.0-51.0); Hemoglobin* 12.9 gm/dL (12.0-16.0); Immature Granulocytes Pct Auto 1.3 %; Lymphocytes Percent Auto 10.7 % (20-44); Mean Corpuscular HGB Conc 34 gm/dL (32-36); Mean Corpuscular Hemoglobin 33 pg (26-34); Mean Corpuscular Volume 99 fL (80-100); Monocytes Percent Auto 8.5 % (0.0-11.0); Neutrophils Percent Auto 79.3 % (42.0-72.0); Platelet Count* 207 K/uL (140-440); RDW Coefficient of Variation % 14.7 % (11.5-15.5); Red Blood Count 3.89 m/uL (4.00-5.20); White Blood Count* 14.92 K/uL (4.50-11.00)
[2022-12-14 06:49] LABS: Slide Review Reflex No
[2022-12-14 06:56] LABS: Chloride* 111 mmol/L (96-114); Potassium* 3.3 mmol/L (3.6-5.1); Sodium* 143 mmol/L (135-149)
[2022-12-14 06:59] LABS: Blood Urea Nitrogen* 13 mg/dL (7-30); Carbon Dioxide* 26 mmol/L (20-32); Creatinine* 0.6 mg/dL (0.5-1.5); Est. Creatinine Clearance* 36.12; Estimated Glomerular Filt Rate 93 ml/min
[2022-12-14 07:00] LABS: Glucose* 143 mg/dL (60-115)
[2022-12-14 07:02] LABS: C Reactive Protein* 3.1 mg/dL (0.5-1.0)
[2022-12-14 07:13] LABS: Troponin I* 0.07 ng/mL (0.01-0.04)
[2022-12-14] MEDS: DIGOXIN 250 MCG/ML inj 125 MCG IV (08:58)
[2022-12-14] MEDS: METOPROLOL TARTRATE 1 MG/ML inj 5 MG IVP (09:18)
[2022-12-14] MEDS: ALBUTEROL SULFATE 2.5 MG/3 ML VIAL.NEB NEB (09:32)
--- NOTE | 2022-12-14 10:33 | PC.NURSE ---
shift note: pt's bp this a.m 174/127 TB=492 irreg and pt audible insp/exp wheezing. Dr. Vinson notified. orders for recheck of BP and albuterol neb x1. Recheck BP 191/109 HR=94. Pt received prn metoprolol 5 mg per d.o for blood pressure.
[2022-12-14 12:01] LABS: Troponin I* 0.06 ng/mL (0.01-0.04)
--- NOTE | 2022-12-14 13:05 | P.IMPN_ITS ---
Progress Note: A&P Assessment and plan (1) Altered mental status: Problem details: Secondary to stroke. I discussed with the patient's son and friend that altered mental status may persist through the 1st 48-72 hours at least as cerebral swelling is worst during that time after stroke. We discussed that there may even be some worsening during that time. Status: Acute (2) Cerebrovascular accident (CVA): Problem details: Large left hemisphere stroke. Causing right hemiparesis. Causing altered mental status and likely speech and swallowing difficulties. May be embolic with the presence of AFib. AFib is a new diagnosis. In clinic recently her pulse was noted to be 77. She may have had AFib for prolonged period of time causing her feeling for several days of not feeling well and possibly her pleural effusions. 12/13/22 I also discussed with her son the guarded prognosis in this situation. He was understanding of this. Discussed goals of care. At this point he wants nothing heroic. He notes that she would not want a feeding tube and would likely want comfort cares if she could not swallow. Antiplatelet therapy and statin when able to swallow. Consider anticoagulation for AFib and stroke, instead of antiplatelet therapy, in 5-7 days if consistent with goals of therapy Status: Acute (3) Nutrition disorder: Problem details: Anticipate swallowing difficulties with stroke. Review nutrition management day by day. 12/13/22 patient is not a diabetic, but has been getting Accu-Cheks and notably glucoses are trending downward and there is concern for potential hypoglycemia. I will change her maintenance fluids to include dextrose. Continue Accu-Cheks. Status: Acute (4) Pneumonia: Problem details: Elevated white count, lactate and abnormal findings on chest x-ray and CT. Con tinue broad-spectrum antibiotic with Zosyn and azithromycin. WBC and CRP remain elevated. Not febrile. Based on emesis on floor, has risk of aspiration event at time of stroke. Favor treating for 5 days with antibiotics. Status: Acute (5) Bilateral pleural effusion: Problem details: Likely due to heart failure, but UO low. Giving cautious IVF. Monitor. Status: Acute (6) Heart failure: Problem details: ECHO EF 40-45%. Son updated. Possibly due to AFib with RVR longstanding. Guideline directed medical therapy initiated when possible allowing for permissive hypertension, inability to swallow and stroke management. Status: Acute (7) Atrial fibrillation with RVR: Problem details: New diagnosis. No history of AFib before this. Digoxin and prn metoprolol working well for rate control. Anticoagulate if clinically improving and consistent with the goals of care in 5-7 days. Avoid full anticoagulation now due to risk of converting ischemic stroke into hemorrhagic stroke. Status: Acute (8) Hypertension: Problem details: Permissive hypertension with stroke Status: Acute (9) Elevated troponin: Problem details: Suspect demand ischemia. EKG reviewed. Follow troponin. Status: Acute Plan VTE prophylaxis with SCDs and low-dose nightly Lovenox. When able to anticoagulate for atrial fibrillation, discontinue Lovenox. Time Spent With Patient Total time spent: Today I spent 45 minutes rounding on the patient. Greater than 50% included discussing care with the patient's son and friend, the care team, reviewing data, updating and managing the care plan. Subjective Time Seen by Provider: 09:55 Date Seen: 12/13/22 Interval history: This is a 77-year-old female who was found down yesterday morning. Her son, Max, is here today with her. 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 She is normally a very vibrant, intelligent, and energetic woman. Max tells me that when EMS found her, she had some emesis near her. Overnight she has remained unresponsive, but does move her left leg and occasionally her left arm. This morning when I walked in, she was also wiggling her right toes a little bit. Max tells me that he recently had a lacunar infarct and is somewhat familiar, therefore, with recommendations for stroke. He also had conversations with Dr. Granados yesterday about the severity of her stroke and what might be expected as far as recovery. Today Max is hopeful that she will have some recovery from this, but notes that if she is unable to swallow that she would not want a feeding tube or aggressive measures, and we should consider comfort measures if that were the case. Later, Jory's friend, Eli, came to visit her and Max was still in the room. He said it was okay to give information to friends who visited, but to not give out any information over the phone except to him. With Max in the room, I gave Eli an update, and I also discussed the results of the echocardiogram. Low urine output since admission, 100 mL per shift. Exam Narrative: Exam Narrative: General: No acute distress. Unresponsive, occasional moan. Eyes are continuou sly closed. No pallor. No jaundice. Oropharynx: Clear. Mucous membranes moist. Cardiovascular: Irregularly irregular, no tachycardia or bradycardia. No murmurs, gallops, or rubs. Respiratory: Fine bibasilar crackles. Abdomen: Bowel sounds present. Soft, nondistended, nontender. Extremities: No pedal edema. Neuro: No response to verbal prompting or physical touch. Spontaneous movement of left leg and left arm, with movements even lifting those limbs off the bed. Wiggling right toes. Ongoing mild facial asymmetry with mild loss of right nasal labial crease. Left eye gaze to the left with brisk pupillary reflex on left, right eye gaze dystonic to superior and sluggish pupillary response. No purposeful eye movements. When I lift her left hand she keeps it there. Right upper extremity is flaccid and completely without tone today. There is no spontaneous movement of the right arm. Const: Vital Signs, click to edit/add: Vital Signs - 24 hr 12/13/22 15:20 12/13/22 15:46 12/13/22 18:32 Temperature 98.4 F 98.7 F Pulse Rate Pulse Rate [Left R adial] 94 Pulse Rate [Pulse Oximeter] Pulse Rate [Right Radial] 100 Respiratory Rate 22 24 Blood Pressure [Ri ght Arm] 150/99 H 189/124 H Pulse Oximetry 95 95 96 Oxygen Delivery Me thod Nasal Cannula Nasal Cannula Oxygen Flow Rate 1 1 12/13/22 15:42 12/13/22 15:51 12/13/22 20:52 Temperature 97.4 F L 98.6 F Pulse Rate 88 Pulse Rate [Left R adial] 101 H Pulse Rate [Pulse Oximeter] 93 Pulse Rate [Right Radial] 101 H Respiratory Rate 22 16 Blood Pressure [Ri ght Arm] 150/99 H 149/92 H Pulse Oximetry 94 97 Oxygen Delivery Me thod Nasal Cannula Nasal Cannula Oxygen Flow Rate 1 1.0 12/13/22 23:21 12/13/22 23:00 12/13/22 23:00 Temperature 98.3 F Pulse Rate 101 H Pulse Rate [Left R adial] Pulse Rate [Pulse Oximeter] 104 H Pulse Rate [Right Radial] Respiratory Rate 18 Blood Pressure [Ri ght Arm] 160/95 H Pulse Oximetry 95 95 Oxygen Delivery Me thod Nasal Cannula Oxygen Flow Rate 1.0 12/13/22 23:00 12/14/22 04:19 12/14/22 08:58 Temperature 97.5 F L Pulse Rate 92 Pulse Rate [Left R adial] Pulse Rate [Pulse Oximeter] 104 H 91 Pulse Rate [Right Radial] Respiratory Rate 18 16 Blood Pressure [Ri ght Arm] 157/91 H Pulse Oximetry 97 Oxygen Delivery Me thod Nasal Cannula Oxygen Flow Rate 1.0 12/14/22 09:58 12/14/22 09:58 12/14/22 09:58 Temperature Pulse Rate 95 Pulse Rate [Left R adial] 103 H Pulse Rate [Pulse Oximeter] Pulse Rate [Right Radial] 103 H Respiratory Rate Blood Pressure [Ri ght Arm] Pulse Oximetry 96 Oxygen Delivery Me thod Oxygen Flow Rate 12/14/22 08:00 12/14/22 12:00 Temperature 97.8 F 98.6 F Pulse Rate Pulse Rate [Left R adial] Pulse Rate [Pulse Oximeter] Pulse Rate [Right Radial] 103 H 94 Respiratory Rate 24 16 Blood Pressure [Ri ght Arm] 174/127 H 159/112 H Pulse Oximetry 93 94 Oxygen Delivery Me thod Room Air Nasal Cannula Oxygen Flow Rate 1 Documenting provider has reviewed patient's vital signs: yes Labs Labs: Laboratory Results - last 24 hr 12/14/22 12/14/22 06:10 11:20 WBC 14.92 H RBC 3.89 L Hgb 12.9 Hct 38.3 MCV 99 MCH 33 MCHC 34 RDW Coeff of Bree 14.7 Plt Count 207 Neut % (Auto) 79.3 H Lymph % (Auto) 10.7 L [place] % (Auto) 8.5 Eos % (Auto) 0.1 Baso % (Auto) 0.1 Neut # (Auto) 11.80 H Lymph # (Auto) 1.60 [place] # (Auto) 1.30 H Eos # (Auto) 0.00 Baso # (Auto) 0.00 Sodium 143 Potassium 3.3 L Chloride 111 Carbon Dioxide 26 BUN 13 Creatinine 0.6 Estimated Creat Clear 36.12 Estimated GFR 93 Glucose 143 H Calcium 8.0 L Troponin I 0.07 H* 0.06 H* C-Reactive Protein 3.1 H
[2022-12-14] MEDS: FUROSEMIDE 10 MG/ML inj 20 MG IVP (13:21)
--- NOTE | 2022-12-14 13:39 | PM.IMPN1 ---
Progress Note: A&P Assessment and plan (1) Altered mental status: Problem details: Secondary to stroke. Some improvement today. Status: Acute (2) Cerebrovascular accident (CVA): Problem details: Large left hemisphere stroke. Causing right hemiparesis. Causing altered mental status and likely speech and swallowing difficulties. May be embolic with the presence of AFib. AFib is a new diagnosis. In clinic recently her pulse was noted to be 77. She may have had AFib for prolonged period of time causing her feeling for several days of not feeling well and possibly her pleural effusions. 12/13/22 I also discussed with her son the guarded prognosis in this situation. He was understanding of this. Discussed goals of care. At this point he wants nothing heroic. He notes that she would not want a feeding tube and would likely want comfort cares if she could not swallow. Antiplatelet therapy and statin when able to swallow. Consider anticoagulation for AFib and stroke, instead of antiplatelet therapy, in 5-7 days if consistent with goals of therapy Status: Acute (3) Nutrition disorder: Problem details: Anticipate swallowing difficulties with stroke. Review nutrition management day by day. 12/13/22 patient is not a diabetic, but has been getting Accu-Cheks and notably glucoses are trending downward and there is concern for potential hypoglycemia. I will change her maintenance fluids to include dextrose. Continue Accu-Cheks. 12/14/22 Glucose stable. Continue D5LR. Status: Acute (4) Pneumonia: Problem details: Elevated white count, lactate and abnormal findings on chest x-ray and CT. Continue broad-spectrum antibiotic with Zosyn and azithromycin. WBC and CRP remain elevated. Not febrile. Based on emesis on floor, has risk of aspiration event at time of stroke. Favor treating for 5 days with antibiotics. Status: Acute (5) Heart failure: Problem details: ECHO EF 40-45%. Possibly due to AFib with RVR longstanding. Good output with one dose of lasix yesterday. Continue daily lasix with electrolyte monitoring and replacement. Guideline directed medical therapy initiated when possible allowing for permissive hypertension, inability to swallow and stroke management. Status: Acute (6) Atrial fibrillation with RVR: Problem details: New diagnosis. No history of AFib before this. Given 4g magnesium IV. Digoxin and prn metoprolol working well for rate control. Anticoagulate if clinically improving and consistent with the goals of care in 5-7 days. Avoid full anticoagulation now due to risk of converting ischemic stroke into hemorrhagic stroke. Status: Acute (7) Hypertension: Problem details: Permissive hypertension with stroke Status: Acute (8) Elevated troponin: Problem details: Peak 0.11. Suspect demand ischemia. EKG reviewed. Follow troponin. Status: Acute (9) Hypokalemia: Problem details: Iatrogenic from loop diuretic. Replace IV. Check magnesium. Status: Acute Plan VTE prophylaxis with SCDs and low-dose nightly Lovenox. When able to anticoagulate for atrial fibrillation, discontinue Lovenox. Time Spent With Patient Total time spent: Today I spent 35 minutes rounding on the patient. Greater than 50% included discussing care with the patient's son and friend, the care team, reviewing data, updating and managing the care plan. Subjective Time Seen by Provider: 08:45 Date Seen: 12/14/22 Interval history: Jory has had some eye fluttering overnight. When I saw 1st saw her this morning, there was nobody else in the room. I saw her again around 11:00 a.m. and she had 3 friends in the room near her bedside. She had been fluttering her eyelids during their presence, and while I was speaking with them, she fully opened her eyes and looked around. She kept reaching up with her left arm to the top of her head and would moan a little. Blood pressures are notably higher today. She got Lasix yesterday with good results. I spoke with her son over the phone and gave him a brief update. Exam Narrative: Exam Narrative: General: No acute distress. As above, opened eyes with intentional looking around and purposeful movements of left arm. She fell asleep again within less than a minute. No pallor. No jaundice. Oropharynx: Clear. Mucous membranes moist. Cardiovascular: Irregularly irregular, no tachycardia or bradycardia. No murmurs, gallops, or rubs. Respiratory: Bibasilar crackles. Abdomen: Bowel sounds present. Soft, nondistended, nontender. Extremities: No pedal edema. Neuro: As above. Other than eye opening, exam is essentially unchanged otherwise. Right arm remains flaccid. She is still unable to follow commands and therefore I am unable to do a complete neuro exam. Const: Vital Signs, click to edit/add: Vital Signs - 24 hr 12/13/22 15:20 12/13/22 15:46 12/13/22 18:32 Temperature 98.4 F 98.7 F Pulse Rate Pulse Rate [Left R adial] 94 Pulse Rate [Pulse Oximeter] Pulse Rate [Right Radial] 100 Respiratory Rate 22 24 Blood Pressure [Ri ght Arm] 150/99 H 189/124 H Pulse Oximetry 95 95 96 Oxygen Delivery Me thod Nasal Cannula Nasal Cannula Oxygen Flow Rate 1 1 12/13/22 15:42 12/13/22 15:51 12/13/22 20:52 Temperature 97.4 F L 98.6 F Pulse Rate 88 Pulse Rate [Left R adial] 101 H Pulse Rate [Pulse Oximeter] 93 Pulse Rate [Right Radial] 101 H Respiratory Rate 22 16 Blood Pressure [Ri ght Arm] 150/99 H 149/92 H Pulse Oximetry 94 97 Oxygen Delivery Me thod Nasal Cannula Nasal Cannula Oxygen Flow Rate 1 1.0 12/13/22 23:21 12/13/22 23:00 12/13/22 23:00 Temperature 98.3 F Pulse Rate 101 H Pulse Rate [Left R adial] Pulse Rate [Pulse Oximeter] 104 H Pulse Rate [Right Radial] Respiratory Rate 18 Blood Pressure [Ri ght Arm] 160/95 H Pulse Oximetry 95 95 Oxygen Delivery Me thod Nasal Cannula Oxygen Flow Rate 1.0 12/13/22 23:00 12/14/22 04:19 12/14/22 08:58 Temperature 97.5 F L Pulse Rate 92 Pulse Rate [Left R adial] Pulse Rate [Pulse Oximeter] 104 H 91 Pulse Rate [Right Radial] Respiratory Rate 18 16 Blood Pressure [Ri ght Arm] 157/91 H Pulse Oximetry 97 Oxygen Delivery Me thod Nasal Cannula Oxygen Flow Rate 1.0 12/14/22 09:58 12/14/22 09:58 12/14/22 09:58 Temperature Pulse Rate 95 Pulse Rate [Left R adial] 103 H Pulse Rate [Pulse Oximeter] Pulse Rate [Right Radial] 103 H Respiratory Rate Blood Pressure [Ri ght Arm] Pulse Oximetry 96 Oxygen Delivery Me thod Oxygen Flow Rate 12/14/22 08:00 12/14/22 12:00 Temperature 97.8 F 98.6 F Pulse Rate Pulse Rate [Left R adial] Pulse Rate [Pulse Oximeter] Pulse Rate [Right Radial] 103 H 94 Respiratory Rate 24 16 Blood Pressure [Ri ght Arm] 174/127 H 159/112 H Pulse Oximetry 93 94 Oxygen Delivery Me thod Room Air Nasal Cannula Oxygen Flow Rate 1 Documenting provider has reviewed patient's vital signs: yes Labs Labs: Laboratory Results - last 24 hr 12/14/22 12/14/22 06:10 11:20 WBC 14.92 H RBC 3.89 L Hgb 12.9 Hct 38.3 MCV 99 MCH 33 MCHC 34 RDW Coeff of Bree 14.7 Plt Count 207 Neut % (Auto) 79.3 H Lymph % (Auto) 10.7 L Prentiss % (Auto) 8.5 Eos % (Auto) 0.1 Baso % (Auto) 0.1 Neut # (Auto) 11.80 H Lymph # (Auto) 1.60 Prentiss # (Auto) 1.30 H Eos # (Auto) 0.00 Baso # (Auto) 0.00 Sodium 143 Potassium 3.3 L Chloride 111 Carbon Dioxide 26 BUN 13 Creatinine 0.6 Estimated Creat Clear 36.12 Estimated GFR 93 Glucose 143 H Calcium 8.0 L Troponin I 0.07 H* 0.06 H* C-Reactive Protein 3.1 H
[2022-12-14] MEDS: POTASSIUM CHLORIDE 10 MEQ/100 ML PIGGYBACK 50 MEQ IVPB ×3 (14:46→19:23)
[2022-12-14] MEDS: AZITHROMYCIN 500 MG in 0.9 % SODIUM CHLORIDE 250 ml 250 ML 250 MG IVPB (17:18)
--- NOTE | 2022-12-14 18:36 | PC.NURSE ---
shift note: pt t&r for comfort throughout the day. Pt continues to be nonverbal but did open her eyes and hold eye contact for short time with Dr. Vinson during exam.pt tongue dry. news writer attempted to apply moisture and pt refused. scab formed over rt upper forehead laceration. LS dim this afternoon with pt requiring 1.5L pnc O2 to keep sats >92%. RR 18-24 with periods of apnea 8-10 seconds.Pt received dilaudid x2 for NATION with relief. Dr. Granados updated on pt's change in BP; 1130 lh=363/112 hr 92, 1751 bp 110/77 mj=198. Dr. Granados also updated on pt's periods of apnea. No further orders. will continue to monitor pt. HG=4121. IV sites x2 intact/patent. family and friends at bedside.
[2022-12-14] MEDS: ENOXAPARIN 40 MG/0.4 ML INJ SUBCUT (21:26)
[2022-12-14] MEDS: LORazepam 2 MG/ML inj 0.5 MG IVP (23:45)
[2022-12-15] VITALS (15 sets, daily range): BP systolic 140–163; BP diastolic 89–121; PULSE 83–118; RESP 18; TEMP 36.4–36.8; O2SAT 94–98
[2022-12-15] MEDS: HYDROmorphone 0.5 mg/0.5 ml inj 0.2 MG IVP ×3 (03:00→16:34)
[2022-12-15] MEDS: PIPERACILLIN/TAZOBACTAM 3.375 GM in 0.9 % SODIUM CHLORIDE Mini-bag 100 ML IVPB ×4 (03:05→21:55)
[2022-12-15 06:24] LABS: Basophils Percent Auto 0.2 % (0.0-3.0); Eosinophils Percent Auto 0.2 % (0.0-7.0); Hematocrit 39.1 % (33.0-51.0); Hemoglobin* 12.9 gm/dL (12.0-16.0); Immature Granulocytes Pct Auto 1.1 %; Lymphocytes Percent Auto 13.1 % (20-44); Mean Corpuscular HGB Conc 33 gm/dL (32-36); Mean Corpuscular Hemoglobin 33 pg (26-34); Mean Corpuscular Volume 100 fL (80-100); Monocytes Percent Auto 8.7 % (0.0-11.0); Neutrophils Percent Auto 76.7 % (42.0-72.0); Platelet Count* 205 K/uL (140-440); RDW Coefficient of Variation % 14.7 % (11.5-15.5); Red Blood Count 3.92 m/uL (4.00-5.20); White Blood Count* 11.49 K/uL (4.50-11.00)
[2022-12-15 06:25] LABS: Slide Review Reflex No
[2022-12-15 06:36] LABS: Chloride* 110 mmol/L (96-114); Potassium* 3.5 mmol/L (3.6-5.1); Sodium* 143 mmol/L (135-149)
[2022-12-15 06:39] LABS: Blood Urea Nitrogen* 10 mg/dL (7-30); Carbon Dioxide* 32 mmol/L (20-32); Creatinine* 0.6 mg/dL (0.5-1.5); Est. Creatinine Clearance* 36.12; Estimated Glomerular Filt Rate 93 ml/min; Glucose* 140 mg/dL (60-115)
[2022-12-15 06:40] LABS: Magnesium* 1.7 mg/dL (1.5-2.6)
[2022-12-15 06:42] LABS: C Reactive Protein* 3.3 mg/dL (0.5-1.0)
--- NOTE | 2022-12-15 07:39 | PC.NURSE ---
SHIFT NOTE : Pt remains unresponsive, turned and repositioned Q2H with 2 assist; pt moving her left side well, little movement on the right. PRN Ativan given for agitation x1, effective. PRN Dilaudid given for nonverbal indications of pain (moaning), effective. VIGIL patent and draining, 175 ml of urine output this shift, MD updated. Pt oxygen saturations >90% on 1.5L O2.
[2022-12-15] MEDS: FUROSEMIDE 10 MG/ML inj 20 MG IVP (07:44)
[2022-12-15] MEDS: 5 % DEXTROSE IN LAC RINGER'S 1,000 ML 75 ML IV ×2 (07:56→22:04)
--- NOTE | 2022-12-15 07:59 | REH.OT ---
Therapies had been held 12/13/22 per MD. Chart reviewed and contacted charge nurse on 12/14/22 am, who reports therapies to continue to hold due to medical status. Spoke with charge nurse this am who reports MD requests patient be seen by PT only today to address ROM and continue to hold OT.
[2022-12-15] MEDS: POTASSIUM CHLORIDE 10 MEQ/100 ML PIGGYBACK 100 MEQ IVPB ×2 (08:27→09:18)
[2022-12-15] MEDS: DIGOXIN 250 MCG/ML inj 125 MCG IV (09:41)
[2022-12-15] MEDS: SODIUM CHLORIDE 0.9 % (FLUSH) 10 ML SYRINGE 5 ML IVF ×2 (09:43→22:03)
--- NOTE | 2022-12-15 11:32 | PM.IMPN1 ---
Progress Note: A&P Assessment and plan (1) Altered mental status: Problem details: Secondary to stroke. Improved from admission, but has very limited function, does not follow commands. Status: Acute (2) Cerebrovascular accident (CVA): Problem details: Large left hemisphere stroke. Causing right hemiparesis. Causing altered mental status and likely speech and swallowing difficulties. May be embolic with the presence of AFib. AFib is a new diagnosis. In clinic recently her pulse was noted to be 77. She may have had AFib for prolonged period of time causing her feeling for several days of not feeling well and possibly her pleural effusions. 12/13/22 I also discussed with her son the guarded prognosis in this situation. He was understanding of this. Discussed goals of care. At this point he wants nothing heroic. He notes that she would not want a feeding tube and would likely want comfort cares if she could not swallow. Antiplatelet therapy and statin when able to swallow. Consider anticoagulation for AFib and stroke, instead of antiplatelet therapy, in 5-7 days if consistent with goals of therapy 12/15/22 patient has not made much improvement overall and is yet unable to attempt to take oral food or drink. Son notes that patient would not want a feeding tube. Will likely be going to comfort cares over the next 24-48 hours. Trial of PT today for at least passive range of motion. Status: Acute (3) Nutrition disorder: Problem details: Anticipate swallowing difficulties with stroke. Review nutrition management day by day. 12/13/22 patient is not a diabetic, but has been getting Accu-Cheks and notably glucoses are trending downward and there is concern for potential hypoglycemia. I will change her maintenance fluids to include dextrose. Continue Accu-Cheks. 12/14/22 Glucose stable. Continue D5LR. Status: Acute (4) Pneumonia: Problem details: Elevated white count, lactate and abnormal findings on chest x-ray and CT. Continue broad-spectrum antibiotic with Zosyn and azithromycin. WBC and CRP remain elevated. Not febrile. Based on emesis on floor, has risk of aspiration event at time of stroke. Favor treating for 5 days with antibiotics, we are currently on day 3/5 of Zosyn. Status: Acute (5) Heart failure: Problem details: ECHO EF 40-45%. Possibly due to AFib with RVR longstanding. Good output with one dose of lasix yesterday. Continue daily lasix with electrolyte monitoring and replacement. Guideline directed medical therapy initiated when possible allowing for permissive hypertension, inability to swallow and stroke management. Status: Acute (6) Atrial fibrillation with RVR: Problem details: New diagnosis. No history of AFib before this. Given 4g magnesium IV. Digoxin and prn metoprolol working well for rate control. Anticoagulate if clinically improving and consistent with the goals of care in 5-7 days. Avoid full anticoagulation now due to risk of converting ischemic stroke into hemorrhagic stroke. Status: Acute (7) Hypertension: Problem details: Permissive hypertension with stroke. Since we are nearing the 72 hour lupe, we could start treating hypertension with antihypertensives tomorrow if she does not go comfort cares. Status: Acute (8) Elevated troponin: Problem details: Peak 0.11. Suspect demand ischemia. Status: Acute (9) Hypokalemia: Problem details: Iatrogenic from loop diuretic. Magnesium level okay. Continue to replace IV. Status: Acute Plan VTE prophylaxis with SCDs and low-dose nightly Lovenox. When able to anticoagulate for atrial fibrillation, discontinue Lovenox. Time Spent With Patient Total time spent: Today I spent 35 minutes rounding on the patient. Greater than 50% included discussing care with the patient's son, the care team, reviewing data, updating and managing the care plan. Subjective Time Seen by Provider: 07:30 Date Seen: 12/15/22 Interval history: When I saw Jory this morning, she did not open her eyes to my voice. I opened her eyes to examine and then she open them afterward slightly. She tried to look at me, but did not have much recognition. When I said hi, she did moan as if she were trying to say hi. Overnight she has been more crackly according to the nurses. Her son came in a little later this morning and I went back and examined Jory again and talked with him. While I was in there he was trying to swab her mouth which was very crusty. She opened her mouth only slightly and did not engage much as he gave her the swab. She did have her eyes open at the time. Her son sensed is that there is some recognition that people are in the room, but he is not sure if she is recognizing anybody. He and I both note that she seems to respond a little bit more when it is people that she knows such as him, some of her friends or myself as opposed to some of the nurses, whom she does not know prior to this hospital stay. We stepped outside the room and discussed that she is not following commands were really engaging much with cares and she has not had any interest in swabs with water on them, and how she would likely fail a swallow study at this time and not be able to participate in therapies. She is going to have a PT session today at least for some passive range of motion and stretching and we will see how that goes. He and I talked about how with Jory does not make much improvement over the next day, that he does not want any heroic measures and he knows that she would not want a feeding tube. We talked about the possibility of comfort cares or hospice and it appears that he is leaning towards that at this time. We discussed that she would likely only have a matter of weeks at the most to live without food or water. We discussed the possibility of her going to [facility] or doing comfort cares at a local [facility]. Given his young family, he is not set up to care for her at his house, plus he noted that it would be an hour away from here and her social life is here and her friends would want to visit her. We discussed her possibly going on comfort cares tomorrow or the next day and that if she did make unexpected improvement we could always reverse that decision. Exam Narrative: Exam Narrative: General: No acute distress. Occasionally opens eyes, especially for people she knows, falls asleep again almost immediately. Does not follow commands. No pallor. No jaundice. Cardiovascular: Irregularly irregular, no tachycardia or bradycardia. No murmurs, gallops, or rubs. Respiratory: Bibasilar crackles. Abdomen: Bowel sounds present. Soft, nondistended, nontender. Extremities: No pedal edema. Neuro: As above. Other than eye opening, exam is essentially unchanged otherwise. Right arm remains flaccid. She remains unable to follow commands. Const: Vital Signs, click to edit/add: Vital Signs - 24 hr 12/14/22 12:00 12/14/22 15:00 12/14/22 15:00 Temperature 98.6 F Pulse Rate Pulse Rate [Left R adial] Pulse Rate [Pulse Oximeter] Pulse Rate [Right Radial] 94 109 H Respiratory Rate 16 18 Blood Pressure [Ri ght Arm] 159/112 H Pulse Oximetry 94 96 Oxygen Delivery Me thod Nasal Cannula Nasal Cannula Oxygen Flow Rate 1 1.5 12/14/22 17:00 12/14/22 18:16 12/14/22 19:36 Temperature 97.8 F Pulse Rate 90 Pulse Rate [Left R adial] Pulse Rate [Pulse Oximeter] Pulse Rate [Right Radial] 104 H Respiratory Rate 18 Blood Pressure [Ri ght Arm] 110/77 Pulse Oximetry 97 96 Oxygen Delivery Me thod Nasal Cannula Oxygen Flow Rate 1.5 12/14/22 19:36 12/14/22 23:00 12/14/22 23:00 Temperature 98 F Pulse Rate Pulse Rate [Left R adial] Pulse Rate [Pulse Oximeter] 90 Pulse Rate [Right Radial] 88 Respiratory Rate 18 20 20 Blood Pressure [Ri ght Arm] 141/102 H Pulse Oximetry 97 95 Oxygen Delivery Me thod Nasal Cannula Nasal Cannula Oxygen Flow Rate 1.5 1.5 12/14/22 23:00 12/14/22 23:58 12/15/22 01:00 Temperature 98.6 F Pulse Rate 89 Pulse Rate [Left R adial] 88 Pulse Rate [Pulse Oximeter] Pulse Rate [Right Radial] 88 Respiratory Rate 20 Blood Pressure [Ri ght Arm] 149/110 H Pulse Oximetry 95 94 Oxygen Delivery Me thod Nasal Cannula Oxygen Flow Rate 1.5 12/15/22 03:00 12/15/22 07:22 12/15/22 07:46 Temperature 98.2 F 97.7 F Pulse Rate Pulse Rate [Left R adial] 94 Pulse Rate [Pulse Oximeter] Pulse Rate [Right Radial] 94 90 Respiratory Rate 18 18 Blood Pressure [Ri ght Arm] 145/119 H 140/93 H Pulse Oximetry 94 98 98 Oxygen Delivery Me thod Nasal Cannula Nasal Cannula Nasal Cannula Oxygen Flow Rate 1.5 1.5 1.5 12/15/22 07:00 12/15/22 07:30 12/15/22 09:41 Temperature Pulse Rate 84 104 H Pulse Rate [Left R adial] Pulse Rate [Pulse Oximeter] Pulse Rate [Right Radial] 90 Respiratory Rate 18 Blood Pressure [Ri ght Arm] Pulse Oximetry Oxygen Delivery Me thod Oxygen Flow Rate Documenting provider has reviewed patient's vital signs: yes Labs Labs: Laboratory Results - last 24 hr 12/14/22 12/15/22 11:20 05:55 WBC 11.49 H RBC 3.92 L Hgb 12.9 Hct 39.1 MCV 100 MCH 33 MCHC 33 RDW Coeff of Bree 14.7 Plt Count 205 Neut % (Auto) 76.7 H Lymph % (Auto) 13.1 L Stephenson % (Auto) 8.7 Eos % (Auto) 0.2 Baso % (Auto) 0.2 Neut # (Auto) 8.80 H Lymph # (Auto) 1.50 Stephenson # (Auto) 1.00 H Eos # (Auto) 0.00 Baso # (Auto) 0.00 Sodium 143 Potassium 3.5 L Chloride 110 Carbon Dioxide 32 BUN 10 Creatinine 0.6 Estimated Creat Clear 36.12 Estimated GFR 93 Glucose 140 H Calcium 8.0 L Magnesium 1.7 Troponin I 0.06 H* C-Reactive Protein 3.3 H
[2022-12-15] MEDS: AZITHROMYCIN 500 MG in 0.9 % SODIUM CHLORIDE 250 ml 250 ML 250 MG IVPB (17:46)
--- NOTE | 2022-12-15 18:46 | PC.NURSE ---
shift note: pt t&r q2hrs. pt having periods of opening eyes throughout the day and reaching for family. pt unable to express needs. Pt medicated for NATION x2 with dilaudid. IV x2 patent. LS with wheezes this a.m. Dr Vinson notified and lasix dose given early per D.O. UO from lasix 1200cc. LS dim throughout the afternoon.
[2022-12-15] MEDS: ENOXAPARIN 40 MG/0.4 ML INJ SUBCUT (21:56)
[2022-12-16] MEDS: LORazepam 2 MG/ML inj 0.5 MG IVP (01:45)
[2022-12-16] MEDS: HYDROmorphone 0.5 mg/0.5 ml inj 0.2 MG IVP (02:11)
[2022-12-16 02:26] VITALS: O2SAT 94
[2022-12-16] MEDS: PIPERACILLIN/TAZOBACTAM 3.375 GM in 0.9 % SODIUM CHLORIDE Mini-bag 100 ML IVPB ×2 (04:39→09:14)
[2022-12-16] MEDS: 0.9 % SODIUM CHLORIDE 250 ml IV (04:41)
[2022-12-16 05:00] VITALS: BP 145/104; PULSE 101; RESP 20; TEMP 36.6; O2SAT 96
[2022-12-16 06:08] LABS: Basophils Percent Auto 0.3 % (0.0-3.0); Eosinophils Percent Auto 0.3 % (0.0-7.0); Hematocrit 44.3 % (33.0-51.0); Hemoglobin* 14.8 gm/dL (12.0-16.0); Immature Granulocytes Pct Auto 0.2 %; Lymphocytes Percent Auto 13.3 % (20-44); Mean Corpuscular HGB Conc 33 gm/dL (32-36); Mean Corpuscular Hemoglobin 33 pg (26-34); Mean Corpuscular Volume 98 fL (80-100); Monocytes Percent Auto 8.7 % (0.0-11.0); Neutrophils Percent Auto 77.2 % (42.0-72.0); Platelet Count* 229 K/uL (140-440); RDW Coefficient of Variation % 14.5 % (11.5-15.5); Red Blood Count 4.52 m/uL (4.00-5.20); White Blood Count* 11.78 K/uL (4.50-11.00)
[2022-12-16 06:10] LABS: Slide Review Reflex No
[2022-12-16 06:17] LABS: Chloride* 111 mmol/L (96-114); Potassium* 3.6 mmol/L (3.6-5.1); Sodium* 144 mmol/L (135-149)
[2022-12-16 06:20] LABS: Blood Urea Nitrogen* 10 mg/dL (7-30); Carbon Dioxide* 31 mmol/L (20-32); Creatinine* 0.5 mg/dL (0.5-1.5); Estimated Glomerular Filt Rate 97 ml/min; Glucose* 149 mg/dL (60-115)
[2022-12-16 06:21] LABS: Calcium* 8.4 mg/dL (8.4-10.6)
--- NOTE | 2022-12-16 06:44 | PC.NURSE ---
Pt has been unresponsive from 1930 til 0700. Its turn and reposition q 2hrs. Bedolla put out 100cc of dark eagle urine. She had 1 lg loose stool. Her periarea is red. barrier cream used. Good oral care done.
--- NOTE | 2022-12-16 07:54 | PM.IMPN1 ---
Progress Note: A&P Assessment and plan (1) Comfort measures only status: Problem details: Starting comfort cares this morning. Will discontinue all labs and diagnostics. Continue furosemide, digoxin and metoprolol. Stop IV fluids. Continue urinary catheter for comfort. I will start her on p.r.n. morphine, Ativan, Levsin, and Haldol for comfort. Status: Acute (2) Altered mental status: Problem details: Secondary to stroke. Improved from admission, but has very limited function, does not follow commands. Status: Acute (3) Cerebrovascular accident (CVA): Problem details: Large left hemisphere stroke. Causing right hemiparesis. Causing altered mental status and likely speech and swallowing difficulties. May be embolic with the presence of AFib. AFib is a new diagnosis. In clinic recently her pulse was noted to be 77. She may have had AFib for prolonged period of time causing her feeling for several days of not feeling well and possibly her pleural effusions. 12/13/22 I also discussed with her son the guarded prognosis in this situation. He was understanding of this. Discussed goals of care. At this point he wants nothing heroic. He notes that she would not want a feeding tube and would likely want comfort cares if she could not swallow. Antiplatelet therapy and statin when able to swallow. Consider anticoagulation for AFib and stroke, instead of antiplatelet therapy, in 5-7 days if consistent with goals of therapy 12/15/22 patient has not made much improvement overall and is yet unable to attempt to take oral food or drink. Son notes that patient would not want a feeding tube. Will likely be going to comfort cares over the next 24-48 hours. Trial of PT today for at least passive range of motion. 12/16/22 patient's son decided for comfort cares only based no meaningful improvement in mental status and worsening urine output and volume overload. Status: Acute (4) Pneumonia: Problem details: Elevated white count, lactate and abnormal findings on chest x-ray and CT. Continue broad-spectrum antibiotic with Zosyn and azithromycin. WBC and CRP remain elevated. Not febrile. Based on emesis on floor, has risk of aspiration event at time of stroke. Now comfort cares only, discontinue antibiotics. Status: Acute (5) Heart failure: Problem details: ECHO EF 40-45%. Possibly due to AFib with RVR longstanding. Status: Acute (6) Atrial fibrillation with RVR: Problem details: New diagnosis. No history of AFib before this. Status: Acute (7) Hypertension: Status: Acute (8) Elevated troponin: Problem details: Peak 0.11. Suspect demand ischemia. Status: Acute (9) Hypokalemia: Problem details: Iatrogenic from loop diuretic. Status: Acute Plan Stop VTE prophylaxis. Subjective Time Seen by Provider: 07:55 Date Seen: 12/16/22 Interval history: Yesterday and overnight Jory has made less urine despite use of Lasix. Her urine is now dark colored as well. Her lungs are developing more crackles. She is becoming less responsive. The patient's son and [id number] aware in the room this morning. Her son also notes that Jory is less responsive yesterday and today than she was on Friday. We discussed that she is not able to follow commands and therefore unable to do a swallow evaluation or swallow at all and he agrees that he would not want anything heroic over feeding tube at this point. We discussed that her body is already showing signs of shutting down and he would like her kept comfortable at this point. He is hopeful that she could be on hospice at a custodial in the area where her family and friends could visit her. Exam Narrative: Exam Narrative: General: No acute distress. Barely opening eyes today, only after I lift her eyelids to check pupillary response. Less movement overall. Does not follow commands. No pallor. No jaundice. Cardiovascular: Irregularly irregular, no tachycardia or bradycardia. No murmurs, gallops, or rubs. Respiratory: Bibasilar crackles, slightly worse than yesterday. Breathing is heavier today. Const: Vital Signs, click to edit/add: Vital Signs - 24 hr 12/15/22 09:41 12/15/22 09:00 12/15/22 11:00 Temperature 97.5 F L Pulse Rate 104 H Pulse Rate [Left R adial] 83 Pulse Rate [Right Radial] Respiratory Rate 18 Blood Pressure [Ri ght Arm] 163/89 H Pulse Oximetry 96 96 Oxygen Delivery Me thod Nasal Cannula Oxygen Flow Rate 1.5 12/15/22 17:51 12/15/22 15:00 12/15/22 15:00 Temperature 97.6 F Pulse Rate 89 Pulse Rate [Left R adial] 98 98 Pulse Rate [Right Radial] 90 Respiratory Rate 18 18 Blood Pressure [Ri ght Arm] 151/108 H Pulse Oximetry 95 Oxygen Delivery Me thod Nasal Cannula Oxygen Flow Rate 1.5 12/15/22 15:00 12/15/22 17:00 12/15/22 21:00 Temperature 97.6 F Pulse Rate Pulse Rate [Left R adial] 99 Pulse Rate [Right Radial] Respiratory Rate 18 18 Blood Pressure [Ri ght Arm] 150/121 H Pulse Oximetry 95 97 95 Oxygen Delivery Me thod Nasal Cannula Nasal Cannula Oxygen Flow Rate 1.5 1.5 12/15/22 23:02 12/15/22 23:00 12/16/22 02:26 Temperature Pulse Rate Pulse Rate [Left R adial] 118 H Pulse Rate [Right Radial] Respiratory Rate Blood Pressure [Ri ght Arm] Pulse Oximetry 95 94 Oxygen Delivery Me thod Nasal Cannula Oxygen Flow Rate 1.5 12/15/22 23:00 12/16/22 05:00 Temperature 97.9 F Pulse Rate 88 Pulse Rate [Left R adial] 101 H Pulse Rate [Right Radial] Respiratory Rate 20 Blood Pressure [Ri ght Arm] 145/104 H Pulse Oximetry 96 Oxygen Delivery Me thod Room Air Oxygen Flow Rate 1 Documenting provider has reviewed patient's vital signs: yes Labs Labs: Laboratory Results - last 24 hr 12/16/22 05:40 WBC 11.78 H RBC 4.52 Hgb 14.8 Hct 44.3 MCV 98 MCH 33 MCHC 33 RDW Coeff of Bree 14.5 Plt Count 229 Neut % (Auto) 77.2 H Lymph % (Auto) 13.3 L Coffey % (Auto) 8.7 Eos % (Auto) 0.3 Baso % (Auto) 0.3 Neut # (Auto) 9.10 H Lymph # (Auto) 1.60 Coffey # (Auto) 1.00 H Eos # (Auto) 0.00 Baso # (Auto) 0.00 Sodium 144 Potassium 3.6 Chloride 111 Carbon Dioxide 31 BUN 10 Creatinine 0.5 Estimated Creat Clear 42.90 Estimated GFR 97 Glucose 149 H Calcium 8.4
[2022-12-16 08:13] VITALS: BP 136/104; PULSE 112; RESP 20; TEMP 35.8; O2SAT 96
[2022-12-16] MEDS: FUROSEMIDE 10 MG/ML inj 20 MG IVP (09:10)
[2022-12-16] MEDS: SODIUM CHLORIDE 0.9 % (FLUSH) 10 ML SYRINGE 5 ML IVF ×2 (09:13→19:44)
[2022-12-16] MEDS: DIGOXIN 250 MCG/ML inj 125 MCG IV (09:13)
[2022-12-16] MEDS: MORPHINE 10 MG/0.5 ML ORAL SOLN PO ×7 (10:17→16:40)
--- NOTE | 2022-12-16 11:00 | REH.OT ---
OT abbi hold due to decline in medical status. MD reports addressing goals of care with family.
[2022-12-16 11:05] VITALS: PULSE 96
[2022-12-16] MEDS: fentaNYL 12 mcg/hr PATCH 1 PATCH TRANSDERMA (12:45)
[2022-12-16] MEDS: LORazepam 1 MG TABLET PO ×2 (13:45→16:10)
--- NOTE | 2022-12-16 14:18 | PC.SOCIAL ---
Discharge plan: Met with son and family regarding d/c plan. Family would like pt to go to [facility] in [place] with hospice care. Called [facility] and faxed information for evaluation for admit. Received call back accepting pt for admit tomorrow 12/17/22. Requested discharge time of 10:00am. Met with family who is pleased with this plan. Family discussed finances and payment directly. Provided family with list of Hospice agencies serving the area. Family has chosen [facility]. Called [facility] and spoke with intake who state they can do an admission tomorrow before noon at [facility]. Faxed requested information to [facility]. Called back and confirmed with [facility] pt will be discharging by non-emergency ambulance to [facility] at 10:00 tomorrow morning with [facility] to do the hospice intake before noon. FAmily is aware and agrees with this plan.
[2022-12-16] MEDS: MORPHINE 4 MG/ML INJ IVP (18:28)
--- NOTE | 2022-12-16 18:44 | PC.NURSE ---
Pt anxious, agitated and tapping head during shift. Pt changed to comfort cares mid-morning.?Pt was given anti-anxiety and pain medications. See EMAR for intervention. A new fentanyl patch started. Trying to keep the patient comfortable and catch up with pain level. The patient had many visitors through out shift which added to anxiety. Family aware and visitors started to slow down around midafternoon. Pt was still agitated and moaning in pain. Medications given to help achieve comfort. Pt was repositioned every two hours. Pt?s family was adamant about patient being adequately medicated. Pt families biggest concern was maintaining comfort and calm for patient. Pt had moments where she was resting comfortably. ?
[2022-12-16] MEDS: LORazepam 2 MG/ML inj 1 MG IVP (19:44)
[2022-12-16 23:19] VITALS: RESP 20
--- NOTE | 2022-12-17 06:11 | ED.NURSE ---
patient appears to rest calmly throughout night, no arm slashing/restlessness or grunting noted. pt turn and rotated q2h or less. pt remains nonverbal and not opening eyes.
--- NOTE | 2022-12-17 07:18 | P.DS_ITS ---
DS: Providers Provider Time Seen by Provider: : Date Seen: 12/17/22 Date of admission: 12/12/22 14:00 Primary care physician: Not a Local Provider Admitting Clinician: Dylon Granados MD Consults: 12/12/22 15:11 Consult to Occupational Therapy [CONS] Routine Comment: Reason(s) for OT Consult:: Evaluate and Treat Any Restrictions?:: No Restrictions Consult to Physical Therapy [CONS] Routine Comment: Reason(s) for PT Consult:: Evaluate and Treat Any Restrictions?:: No Restrictions 12/12/22 15:12 Consult to Speech Therapy [CONS] Routine Comment: Reason(s) for Speech Consult:: Speech/Swallowing Eval 12/12/22 15:15 Consult to Respiratory Therapy [CONS] Routine Comment: Reason(s) for RT Consult:: Consult Comment: Large stroke. Anticipate swallowing problems and problems with managing secretions. Possible pneumonia. Bilateral pleural effusions thought secondary to heart failure 12/12/22 15:45 Consult to Occupational Therapy [CONS] Routine Comment: Reason(s) for OT Consult:: Evaluate and Treat Any Restrictions?:: See Comment Comment: no movement right side r/t recent stroke Consult to Physical Therapy [CONS] Routine Comment: Reason(s) for PT Consult:: Evaluate and Treat Any Restrictions?:: No Restrictions Comment: no movement right side r/t recent stroke Attending Physician on discharge: Jossie Vinson MD Date of Discharge: 12/17/22 DS: Diagnosis Discharge Diagnosis (1) Comfort measures only status: Status: Acute Problem details: Starting comfort cares this morning. Will discontinue all labs and diagnostics. Continue furosemide, digoxin and metoprolol. Stop IV fluids. Continue urinary catheter for comfort. Continue comfort medications. (2) Hypokalemia: Status: Acute Problem details: Iatrogenic from loop diuretic. (3) Elevated troponin: Status: Acute Problem details: Peak 0.11. Suspect demand ischemia. (4) Nutrition disorder: Status: Acute Problem details: Anticipate swallowing difficulties with stroke. Review nutrition management day by day. 12/13/22 patient is not a diabetic, but has been getting Accu-Cheks and notably glucoses are trending downward and there is concern for potential hypoglycemia. I will change her maintenance fluids to include dextrose. Continue Accu-Cheks. 12/14/22 Glucose stable. Continue D5LR. 12/16/22 comfort cares. (5) Pneumonia: Status: Acute Problem details: Elevated white count, lactate and abnormal findings on chest x-ray and CT. Continue broad-spectrum antibiotic with Zosyn and azithromycin. WBC and CRP remain elevated. Not febrile. Based on emesis on floor, has risk of aspiration event at time of stroke. Now comfort cares only, discontinue antibiotics. (6) Altered mental status: Status: Acute Problem details: Secondary to stroke. Improved from admission, but has very limited function, does not follow commands. (7) Cerebrovascular accident (CVA): Status: Acute Problem details: Large left hemisphere stroke. Causing right hemiparesis. Causing altered mental status and likely speech and swallowing difficulties. May be embolic with the presence of AFib. AFib is a new diagnosis. In clinic recently her pulse was noted to be 77. She may have had AFib for prolonged period of time causing her feeling for several days of not feeling well and possibly her pleural effusions. 12/13/22 I also discussed with her son the guarded prognosis in this situation. He was understanding of this. Discussed goals of care. At this point he wants nothing heroic. He notes that she would not want a feeding tube and would likely want comfort cares if she could not swallow. Antiplatelet therapy and statin when able to swallow. Consider anticoagulation for AFib and stroke, instead of antiplatelet therapy, in 5-7 days if consistent with goals of therapy 12/15/22 patient has not made much improvement overall and is yet unable to attempt to take oral food or drink. Son notes that patient would not want a feeding tube. Will likely be going to comfort cares over the next 24-48 hours. Trial of PT today for at least passive range of motion. 12/16/22 patient's son decided for comfort cares only based no meaningful improvement in mental status and worsening urine output and volume overload. (8) Bilateral pleural effusion: Status: Acute Problem details: Likely due to heart failure, but UO low. Giving cautious IVF. Monitor. (9) Heart failure: Status: Acute Problem details: ECHO EF 40-45%. Possibly due to AFib with RVR longstanding. (10) Atrial fibrillation with RVR: Status: Acute Problem details: New diagnosis. No history of AFib before this. (11) Hypertension: Status: Acute DS: Summary Hospital Course Hospital Course: 77-year-old female who came in with a massive left-sided MCA stroke. She had other complicating factors as above. Initially she was unresponsive, and developed some eye opening the peak of which was on Friday, but then dwindled a gain from there. Was made comfort cares yesterday as she has not been following commands and her son notes that she would not want to live like this and would not want a feeding tube. Please see diagnoses above for further details. Time Spent with Patient Time attestation: Total time spent providing and/or coordinating discharge services: Exam Narrative: Exam Narrative: General: No acute distress. Comfortable now. No eye opening or response to name or touch. Cardiovascular: Irregularly irregular, no tachycardia or bradycardia. No murmurs, gallops, or rubs. Respiratory: Bibasilar crackles. Const: Vital Signs, click to edit/add: Vital Signs - 24 hr 12/16/22 08:13 12/16/22 11:05 12/16/22 08:13 Temperature 96.5 F L Pulse Rate 96 Pulse Rate [Pulse Oximeter] 112 H Pulse Rate [Right Radial] 112 H Respiratory Rate 20 20 Blood Pressure [Ri ght Arm] 136/104 H Pulse Oximetry 96 Oxygen Delivery Me thod Nasal Cannula Oxygen Flow Rate 1 12/16/22 23:19 Temperature Pulse Rate Pulse Rate [Pulse Oximeter] Pulse Rate [Right Radial] Respiratory Rate 20 Blood Pressure [Ri ght Arm] Pulse Oximetry Oxygen Delivery Me thod Oxygen Flow Rate Documenting provider has reviewed patient's vital signs: yes DS: Data Data Completed and Pending Completed studies during hospitalization: 12/12/2022 11:21 a.m. EKG: Atrial fibrillation with rapid ventricular response with premature ventricular or aberrantly conducted complexes. Heart rate 141 beats per minute. Left axis deviation. Incomplete right bundle-branch block. Cannot rule out atrial septal infarct, age undetermined. ST and T-wave abnormality, consider lateral ischemia. Abnormal EKG. 12/13/2022 echocardiogram: Normal LV size, mildly increased wall thickness, estimated EF of 40-45%. Mild RV enlargement, borderline systolic function. Mitral valve is normal, mild to moderate mitral regurgitation. [id number] tricuspid regurgitation. PASP 37 mm Hg plus RA pressure. Inferior vena cava is dilated, respiratory size variation is greater than 50%. Ordering Physician: Smooth Minaya M.D. Date of Service: 12/12/22 Procedure(s): CT head/brain wo con Accession Number(s): [id number] cc: Smooth Minaya M.D.; Provider,Not a Local ~ For Patients: As a result of the Cures Act, medical imaging exams and procedure reports are released immediately into your electronic medical record. You may view this report before your referring provider. If you have questions, please contact your health care provider. INDICATION: Fall. COMPARISON: CT head 11/01/2012. TECHNIQUE: CT of the head without IV contrast. Coronal and sagittal reconstructions. FINDINGS: Exam limited by motion artifact. There is questionable loss of diez-white differentiation in the left frontal lobe (for example series 3, image 31). No mass effect or midline shift. No intracranial hemorrhage or abnormal extra-axial fluid collections. Mild generalized cerebral and cerebellar volume loss. Mild chronic small vessel ischemic disease. Ventricular caliber is within normal limits. Again seen is an aneurysm arising from the left middle cerebral artery measuring approximately 7 mm (series 3 image 21 and series 7, image 41). Orbits and extraocular muscles are symmetric. The paranasal sinuses and mastoid air cells are clear. No acute fracture identified. Soft tissue swelling overlying the right anterior frontal bone and right periorbital region. IMPRESSION: 1. There is questionable loss of diez-white differentiation in the left frontal lobe, however evaluation is limited by motion artifact. Consider further evaluation with MRI if there is clinical concern for acute infarct. No evidence of intracranial hemorrhage. 2. 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 This could be further evaluated with CTA or MRA. 3. Soft tissue swelling overlying the right anterior frontal bone and right periorbital region. Please note that all CT scans at this facility use dose modulation, iterative reconstruction, and/or weight-based dosing when appropriate to reduce radiation dose to as low as reasonably achievable. Dictated by Shalonda Ring MD @ 12/12/2022 12:23:08 PM (Electronically Signed) Ordering Physician: Smooth Minaya M.D. Date of Service: 12/12/22 Procedure(s): CT cervical spine wo con Accession Number(s): [id number] cc: Smooth Minaya M.D.; Provider,Not a Local ~ For Patients: As a result of the Cures Act, medical imaging exams and procedure reports are released immediately into your electronic medical record. You may view this report before your referring provider. If you have questions, please contact your health care provider. INDICATION: Fall. COMPARISON: None. TECHNIQUE: CT of the cervical spine without IV contrast. Coronal and sagittal reconstructions. FINDINGS: Exam limited by motion artifact. No acute fracture or traumatic malalignment of the cervical spine. Vertebral body heights are well maintained. Minimal anterolisthesis of C4 on C5. Spondylotic changes including endplate spurring, facet arthropathy, and moderate disc space narrowing at C6-C7. Multilevel varying degrees of neural foraminal narrowing. No significant spinal canal stenosis. No prevertebral soft tissue swelling. Visualized intracranial contents are unremarkable. The mastoid air cells are clear. The thyroid gland is normal in appearance. Pleural effusion in the right lung apex. There is subcutaneous edema in the right lateral face and neck. IMPRESSION: 1. No acute fracture or traumatic malalignment identified within limitations of motion artifact. 2. Spondylotic changes as described above. 3. Pleural effusion in the right lung apex. 4. Subcutaneous edema in the right lateral face and neck. Please note that all CT scans at this facility use dose modulation, iterative reconstruction, and/or weight-based dosing when appropriate to reduce radiation dose to as low as reasonably achievable. Dictated by Shalonda Ring MD @ 12/12/2022 12:32:11 PM (Electronically Signed) Ordering Physician: Smooth Minaya M.D. Date of Service: 12/12/22 Procedure(s): XR chest 1V Accession Number(s): [id number] cc: Smooth Minaya M.D.; Provider,Not a Local ~ For Patients: As a result of the Cures Act, medical imaging exams and procedure reports are released immediately into your electronic medical record. You may view this report before your referring provider. If you have questions, please contact your health care provider. INDICATION: Fall. Unresponsive. COMPARISON: None TECHNIQUE: Single-view study FINDINGS: TUBES AND LINES: None. HEART AND MEDIASTINUM: Enlarged heart.. LUNGS AND PLEURAL SPACES: Diffuse multifocal airspace abnormality bilaterally, right greater than left. There is also consolidation at both bases and a right effusion.No pneumothorax. OSSEOUS STRUCTURES: Age-appropriate appearance. No acute focal finding. IMPRESSION: Diffuse multifocal airspace opacities bilaterally, right greater than left. This could be due to edema. There are also areas of consolidation at the bases and a right effusion. The consolidation could be due to atelectasis, aspiration or pneumonia. No pneumothorax Dictated by Brodie Larkin MD @ 12/12/2022 12:27:39 PM (Electronically Signed) Ordering Physician: Dylon Granados M.D. Date of Service: 12/12/22 Procedure(s): MR head/brain wo con Accession Number(s): [id number] cc: Dylon Granados M.D.; Provider,Not a Local ~ For Patients: As a result of the Cures Act, medical imaging exams and procedure reports are released immediately into your electronic medical record. You may view this report before your referring provider. If you have questions, please contact your health care provider. INDICATION: Altered mental status. Left gaze deviation. TECHNIQUE: Brain MRI without contrast. The following sequences were obtained: Sagittal T1 weighted sequence. DWI and ADC mapping sequences. Axial FLAIR and ANGELICA T2 weighted sequences. Brain MRA without contrast. 3D [id number] sequence with MIPS reconstructions included. COMPARISON: Head CT from 12/12/2022. FINDINGS: Brain MRI: There is a large zone of diffusion restriction within the left frontal lobe including the operculum, insula, middle frontal gyrus and precentral gyrus, the left-sided basal ganglia including the caudate, putamen and internal capsule and minimally within the left postcentral gyrus and left anterior mesial temporal lobe as well. The infarct bed measures up to 49 x 94 millimeters in axial plane. Paucity of associated FLAIR hyperintense signal suggests acute age. This infarct involves the MCA territory. No acute or chronic intracranial blood products. Scattered FLAIR hyperintensities within the supratentorial white matter, predominantly deep/periventricular location, typical for chronic microvascular ischemic change. No mass effect or herniation. No hydrocephalus or extra-axial collections. The pituitary gland, parasellar structures and optic chiasm are normal. Posterior fossa is normal. Loss of the normal left intracranial internal carotid artery flow void. The orbital contents are normal. No calvarial or skull base marrow replacing process. No obstructive sinus disease. No extracranial soft tissue findings. Brain MRA: Motion artifact degrades the exam. No flow related enhancement within the left intracranial internal carotid artery or left middle cerebral artery. The anterior cerebral arteries, right middle cerebral arteries and posterior cerebral arteries are patent. Right intracranial internal carotid artery is patent. Intradural vertebral arteries and basilar artery are patent. IMPRESSION: 1. Large 94 millimeter acute MCA distribution infarct centered within the left frontal lobe and basal ganglia. DWI/FLAIR mismatch suggests acute age (less than 12 hours). No hemorrhagic transformation. No recent infarcts elsewhere within the brain. 2. No flow related enhancement within the left intracranial internal carotid artery or middle cerebral artery. The left middle cerebral artery is likely occluded. The left internal carotid artery likely is occluded or severely stenotic within its cervical segment. Consider dedicated neck arterial imaging for further assessment. 3. The other major intracranial arteries are patent, within limits of motion degraded exam. 4. I discussed the findings directly with Dr. Granados at 3:32 p.m., 12/12/2022. Dictated by Nino Pino MD @ 12/12/2022 3:32:53 PM (Electronically Signed) Ordering Physician: Dylon Granados M.D. Date of Service: 12/12/22 Procedure(s): MR angio head wo con Accession Number(s): [id number] cc: Dylon Granados M.D.; Provider,Not a Local ~ For Patients: As a result of the Century Cures Act, medical imaging exams and procedure reports are released immediately into your electronic medical record. You may view this report before your referring provider. If you have questions, please contact your health care provider. Dictation for this exam included within the brain MRI report from the same date. Dictated by Nino Pino MD @ 12/12/2022 3:33:48 PM (Electronically Signed) Labs on day of discharge: Preliminary micro results at discharge 12/12/22 11:45 Blood Culture - Preliminary Blood NO GROWTH AFTER 96 HOURS 12/12/22 11:45 Blood Culture - Preliminary Blood NO GROWTH AFTER 96 HOURS Discharge Plan Discharge Disposition: [facility] Date of Admission: 12/12/22 14:00 Attending Provider on Discharge: Jossie Vinson Primary Care Provider: Provider,Not a Local Condition: Unchanged Discharge Medications: New fentanyl 25 mcg/hr patch 72 hour 1 patch transdermal Q72H Qty: 5 0RF lorazepam 1 mg Tablet 0.5 - 2 mg PO Q1H PRNQty: 10 0RF morphine concentrate 100 mg/5 mL (20 mg/mL) solution 5 - 20 mg PO Q1H PRN (Reason: pain) Qty: 15 0RF Discontinued furosemide 20 mg tablet 20 mg PO DAILY losartan 100 mg tablet 100 mg PO DAILY Discharge Orders: Discharge Order (Routine); Ordered 12/17/22 Ordered By: Jossie Vinson Consulting provider completed their portion of the discharge: Yes Activity Level: No Restrictions Discharge Diet: Other Diet Detail: NPO, swabs okay Follow Up Appointments: [facility] [Outside] Provider,Not a Local [Primary Care Provider] - Admit to: SNF Discharge Potential: Poor Length of Stay: <30 days Can use facility standing orders?: Yes Code Status: DNR/DNI Rehab Potential: Poor Oxygen: No Urinary Catheter: Yes Hospice Evaluate and Admit: yes, [facility] Orders are good >30 days: No Signature: Jossie Vinson MD
[2022-12-17] MEDS: LORazepam 2 MG/ML inj 1 MG IVP (09:55)
[2022-12-17] MEDS: SODIUM CHLORIDE 0.9 % (FLUSH) 10 ML SYRINGE 5 ML IVF (09:55)
--- NOTE | 2022-12-17 10:24 | PC.NURSE ---
Pt calm and comfortable during shift. Pt was put on comfort cares on 12/16. Pt was repositioned every two hours. Pt's IV were removed catheters intact. Pt was given IV Ativan prior to transport for comfort. Pt has a fentanyl patch on her left shoulder and was in place upon discharge. Pt was discharged to [facility] with hospice services. EMS non emergent services provided transport.
== END 2022-12-17 10:31 | DRG 64 ==
LOC: ED 13:25 → MEDSURG 14:01
PROVIDERS: Family Medicine; Internal Medicine; Admitting Provider Family Medicine; Emergency Provider Emergency Medicine Emergency Medical Services; Visit Provider Family Medicine
DX: I63.9 Cerebral infarction, unspecified (principal); J18.9 Pneumonia, unspecified organism; G81.91 Hemiplegia, unspecified affecting right dominant side; I24.8 Other forms of acute ischemic heart disease; R41.82 Altered mental status, unspecified; R13.10 Dysphagia, unspecified; R47.9 Unspecified speech disturbances; I48.91 Unspecified atrial fibrillation; E87.6 Hypokalemia; I11.0 Hypertensive heart disease with heart failure; I50.9 Heart failure, unspecified; I67.1 Cerebral aneurysm, nonruptured; I34.0 Nonrheumatic mitral (valve) insufficiency; E63.9 Nutritional deficiency, unspecified; Z87.891 Personal history of nicotine dependence
CPT/HCPCS: 36415; 70450; 70544; 70551; 71045; 72125; 80048; 80076; 80306; 81001; 82077; 82550; 82962; 83605; 83735; 84443; 84484; 85025; 86140; 87040; 87635; 93005; 93306; 94640; 94761; 97110; 97161; 99285; 99291; A9270; J0456; J1160; J1170; J1650; J1940; J2060; J2270; J2543; J3475; J3480; J7030; J7050; J7120

== ENCOUNTER 2022-12-17 10:18 | Outpatient (CLI) | payer MEDICARE, BC, SELFPAY | END 2022-12-17 10:19 | disposition home or self-care (01) | LOC: AMB 12-22 13:16 | PROVIDERS: Visit Provider Family Medicine | DX: I67.9 Cerebrovascular disease, unspecified (principal) | CPT/HCPCS: A0425; A0428 ==